=== PATIENT | male | born 1955 | race Caucasian/White ===

== ENCOUNTER → 2020-02-03 08:33 | Outpatient (BNVA) | payer BC, SELFPAY | PROVIDERS: PCP Internal Medicine; Referring Provider Internal Medicine; Visit Provider Internal Medicine | DX: Z76.89 Persons encountering health services in other specified circumstances (principal) ==

== ENCOUNTER 2020-03-21 16:33 | Outpatient (REF) | payer BC, SELFPAY | END 2020-03-21 16:34 | disposition home or self-care (01) | LOC: HO.LAB 16:33 | PROVIDERS: Visit Provider Dermatology | DX: Z13.89 Encounter for screening for other disorder (principal) ==

== ENCOUNTER 2020-04-03 16:11 | Outpatient (REF) | payer BC, SELFPAY ==
[2020-04-03 16:39] LABS: Eosinophils Absolute Auto 0.2 X10*3/uL (0.0-0.4); MANUAL DIFF FLAG SCAN; PLT CLUMP 1; Red Cell Distribution Width 13.1 % (11.0-16.0); SCAN SMEAR FLAG 1
[2020-04-03 16:41] LABS: Basophils Absolute Auto 0.1 X10*3/uL (0.0-0.2); Basophils Percent Auto 1.1 % (0-2); Eosinophils Percent Auto 2.8 % (0-4); Hemoglobin 14.4 g/dl (14.0-18.0); Imm Gran Abs Auto 0.01 X10*3/uL (0.00-0.03); Imm Gran Pct Auto 0.1 % (0.0-0.4); Lymphocytes Absolute Auto 1.5 X10*3/uL (1.2-4.9); Lymphocytes Percent Auto 21.2 % (20-40); Mean Corpuscular HGB Conc 34.3 g/dl (31.0-36.0); Mean Corpuscular Hemoglobin 31.9 pg (27.0-33.0); Mean Corpuscular Volume 92.9 fL (80-98); Mean Platelet Volume 11.5 fL (9.4-12.4); Monocytes Absolute Auto 0.5 X10*3/uL (0.1-1.2); Monocytes Percent Auto 6.3 % (2-11); Neutrophils Absolute Auto 4.9 X10*3/uL (2.0-8.3); Neutrophils Percent Auto 68.5 % (45-73); Red Blood Count 4.52 X10*6/uL (4.60-5.80); White Blood Count 7.1 X10*3/uL (4.8-10.8)
[2020-04-03 16:57] LABS: Platelet Count 94 X10*3/uL (160-400)
[2020-04-03 16:58] LABS: SLIDE REVIEW VERIFIED
[2020-04-03 17:03] LABS: Alanine Aminotransferase 14 U/L (0-40); Albumin Level 4.3 g/dL (3.5-5.0); Alkaline Phosphatase 103 U/L (39-117); Anion Gap 13 (12-20); Aspartate Amino Transferase 23 U/L (5-37); Bilirubin Total 0.4 mg/dL (0.0-1.0); Blood Urea Nitrogen 14 mg/dL (9-16); Calcium 8.9 mg/dL (8.4-10.2); Carbon Dioxide 28 mmol/L (22-29); Chloride 104 mmol/L (96-108); Estimated Glomerular Filt Rate > 60; Glucose Random 80 mg/dL (60-115); Sodium 141 mmol/L (135-145); Total Protein 6.5 g/dL (6.5-8.0)
== END 2020-04-03 16:12 | disposition home or self-care (01) ==
LOC: HO.LAB 16:11
PROVIDERS: PCP Internal Medicine; Visit Provider Dermatology
DX: L12.0 Bullous pemphigoid (principal); L57.0 Actinic keratosis; L82.1 Other seborrheic keratosis; Z79.899 Other long term (current) drug therapy
CPT/HCPCS: 36415; 80053; 85025

== ENCOUNTER 2020-09-22 12:12 | Outpatient (REF) | payer BC, SELFPAY ==
[2020-09-22 14:32] LABS: Basophils Absolute Auto 0.1 X10*3/uL (0.0-0.2); Imm Gran Abs Auto 0.01 X10*3/uL (0.00-0.03); Imm Gran Pct Auto 0.2 % (0.0-0.4); MANUAL DIFF FLAG SCAN; Mean Corpuscular Volume 95.2 fL (80-98); PLT CLUMP 1; SCAN SMEAR FLAG 1
[2020-09-22 14:34] LABS: Basophils Percent Auto 1.1 % (0-2); Eosinophils Absolute Auto 0.2 X10*3/uL (0.0-0.4); Eosinophils Percent Auto 4.1 % (0-4); Hematocrit 41.5 % (42-52); Lymphocytes Absolute Auto 1.3 X10*3/uL (1.2-4.9); Lymphocytes Percent Auto 23.3 % (20-40); Mean Corpuscular HGB Conc 33.7 g/dl (31.0-36.0); Mean Corpuscular Hemoglobin 32.1 pg (27.0-33.0); Mean Platelet Volume 11.8 fL (9.4-12.4); Monocytes Absolute Auto 0.5 X10*3/uL (0.1-1.2); Monocytes Percent Auto 9.3 % (2-11); Neutrophils Absolute Auto 3.3 X10*3/uL (2.0-8.3); Red Blood Count 4.36 X10*6/uL (4.60-5.80); Red Cell Distribution Width 12.8 % (11.0-16.0); White Blood Count 5.4 X10*3/uL (4.8-10.8)
[2020-09-22 14:35] LABS: Platelet Count 93 X10*3/uL (160-400)
[2020-09-22 14:48] LABS: Alanine Aminotransferase 20 U/L (0-40); Albumin Level 4.1 g/dL (3.5-5.0); Alkaline Phosphatase 101 U/L (39-117); Anion Gap 13 (12-20); Aspartate Amino Transferase 28 U/L (5-37); Bilirubin Total 0.6 mg/dL (0.0-1.0); Blood Urea Nitrogen 12 mg/dL (9-16); Calcium 9.2 mg/dL (8.4-10.2); Carbon Dioxide 29 mmol/L (22-29); Chloride 104 mmol/L (96-108); Estimated Glomerular Filt Rate > 60; Glucose Random 85 mg/dL (60-115); Potassium 4.4 mmol/L (3.3-5.1); Sodium 142 mmol/L (135-145); Total Protein 6.2 g/dL (6.5-8.0)
[2020-09-24 20:12] LABS: TS Negative Control Passed; TS Panel A 0; TS Panel B 0; TS Positive Control Passed; TSpotTB Negative (SeeBelow)
== END 2020-09-22 12:13 | disposition home or self-care (01) ==
LOC: HO.LAB 12:12
PROVIDERS: PCP Internal Medicine; Visit Provider Dermatology
DX: L12.0 Bullous pemphigoid (principal)
CPT/HCPCS: 36415; 80053; 85025; 86481

== ENCOUNTER 2021-01-01 16:12 | Outpatient (REF) | payer BC, SELFPAY ==
[2021-01-01 16:44] LABS: Basophils Absolute Auto 0.1 X10*3/uL (0.0-0.2); Hemoglobin 13.9 g/dl (14.0-18.0); Imm Gran Abs Auto 0.02 X10*3/uL (0.00-0.03); Imm Gran Pct Auto 0.3 % (0.0-0.4); MANUAL DIFF FLAG SCAN; PLT CLUMP 1; SCAN SMEAR FLAG 1
[2021-01-01 16:46] LABS: Basophils Percent Auto 0.7 % (0-2); Eosinophils Absolute Auto 0.3 X10*3/uL (0.0-0.4); Eosinophils Percent Auto 4.7 % (0-4); Hematocrit 39.6 % (42-52); Lymphocytes Absolute Auto 1.1 X10*3/uL (1.2-4.9); Lymphocytes Percent Auto 15.4 % (20-40); Mean Corpuscular HGB Conc 35.1 g/dl (31.0-36.0); Mean Corpuscular Hemoglobin 32.9 pg (27.0-33.0); Mean Corpuscular Volume 93.6 fL (80-98); Mean Platelet Volume 11.6 fL (9.4-12.4); Monocytes Absolute Auto 0.5 X10*3/uL (0.1-1.2); Monocytes Percent Auto 7.9 % (2-11); Neutrophils Absolute Auto 4.9 X10*3/uL (2.0-8.3); Red Blood Count 4.23 X10*6/uL (4.60-5.80); Red Cell Distribution Width 13.8 % (11.0-16.0); White Blood Count 6.8 X10*3/uL (4.8-10.8)
[2021-01-01 16:47] LABS: Platelet Count 97 X10*3/uL (160-400)
[2021-01-01 17:01] LABS: Alanine Aminotransferase 14 U/L (0-40); Albumin Level 4.1 g/dL (3.5-5.0); Alkaline Phosphatase 106 U/L (39-117); Anion Gap 10 (12-20); Aspartate Amino Transferase 21 U/L (5-37); Bilirubin Total 0.3 mg/dL (0.0-1.0); Blood Urea Nitrogen 14 mg/dL (9-16); Calcium 9.3 mg/dL (8.4-10.2); Carbon Dioxide 26 mmol/L (22-29); Chloride 109 mmol/L (96-108); Estimated Glomerular Filt Rate > 60; Glucose Random 105 mg/dL (60-115); Potassium 4.1 mmol/L (3.3-5.1); Sodium 141 mmol/L (135-145); Total Protein 6.3 g/dL (6.5-8.0)
[2021-01-01 17:10] LABS: SLIDE REVIEW VERIFIED
== END 2021-01-01 16:13 | disposition home or self-care (01) ==
LOC: HO.LAB 16:12
PROVIDERS: PCP Internal Medicine; Visit Provider Dermatology
DX: L12.0 Bullous pemphigoid (principal); D48.5 Neoplasm of uncertain behavior of skin; L82.1 Other seborrheic keratosis; Z79.899 Other long term (current) drug therapy; Z85.828 Personal history of other malignant neoplasm of skin
CPT/HCPCS: 36415; 80053; 85025

== ENCOUNTER → 2021-05-31 09:10 | Outpatient (BNVA) | payer BC, SELFPAY | PROVIDERS: PCP Internal Medicine; Referring Provider Internal Medicine; Visit Provider Internal Medicine | DX: I48.92 Unspecified atrial flutter (principal); I49.3 Ventricular premature depolarization; I51.7 Cardiomegaly; I77.810 Thoracic aortic ectasia; D69.6 Thrombocytopenia, unspecified | CPT/HCPCS: 93005 ==

== ENCOUNTER 2022-01-05 08:13 | Outpatient (REF) | payer BC, SELFPAY ==
[2022-01-05 08:35] LABS: MANUAL DIFF FLAG NO
[2022-01-05 08:58] LABS: Basophils Absolute Auto 0.1 X10*3/uL (0.0-0.2); Basophils Percent Auto 0.9 % (0-2); Eosinophils Absolute Auto 0.2 X10*3/uL (0.0-0.4); Eosinophils Percent Auto 3.6 % (0-4); Hematocrit 44.1 % (42.0-52.0); Hemoglobin 15.3 g/dl (14.0-18.0); Imm Gran Abs Auto 0.01 X10*3/uL (0.00-0.03); Imm Gran Pct Auto 0.2 % (0.0-0.4); Lymphocytes Absolute Auto 0.9 X10*3/uL (1.2-4.9); Lymphocytes Percent Auto 15.7 % (20-40); Mean Corpuscular HGB Conc 34.7 g/dl (31.0-36.0); Mean Corpuscular Hemoglobin 32.6 pg (27.0-33.0); Mean Corpuscular Volume 93.8 fL (80.0-98.0); Mean Platelet Volume 11.2 fL (9.4-12.4); Monocytes Absolute Auto 0.5 X10*3/uL (0.1-1.2); Monocytes Percent Auto 9.7 % (2-11); Neutrophils Absolute Auto 3.8 x10*3/uL (2.0-8.3); Neutrophils Percent Auto 69.9 % (45-73); Platelet Count 103 X10*3/uL (160-400); Red Cell Distribution Width 12.8 % (11.0-16.0); White Blood Count 5.5 X10*3/uL (4.8-10.8)
[2022-01-05 09:30] LABS: Alanine Aminotransferase 20 U/L (0-40); Albumin Level 4.2 g/dL (3.5-5.0); Alkaline Phosphatase 108 U/L (39-117); Anion Gap 15 (12-20); Aspartate Amino Transferase 21 U/L (5-37); Bilirubin Total 0.5 mg/dL (0.0-1.0); Blood Urea Nitrogen 14 mg/dL (9-16); Calcium 9.2 mg/dL (8.4-10.2); Carbon Dioxide 30 mmol/L (22-29); Chloride 100 mmol/L (96-108); Cholesterol 153 mg/dL; Estimated Glomerular Filt Rate > 60; Glucose Fasting 105 mg/dL (60-99); HDL Cholesterol 71 mg/dL; LDL Cholesterol Calculated 78 mg/dl; Potassium 4.5 mmol/L (3.3-5.1); Sodium 140 mmol/L (135-145); Total Protein 6.5 g/dL (6.5-8.0); Triglycerides 22 mg/dL
[2022-01-05 09:39] LABS: PSA,Total (Free>4and<10) 0.27 ng/mL (0.00-4.00)
== END 2022-01-05 08:14 | disposition home or self-care (01) ==
LOC: HO.LAB 08:13
PROVIDERS: PCP Internal Medicine; Visit Provider Internal Medicine
DX: Z00.00 Encounter for general adult medical examination without abnormal findings (principal); Z12.5 Encounter for screening for malignant neoplasm of prostate; I48.91 Unspecified atrial fibrillation
CPT/HCPCS: 36415; 80053; 80061; 84153; 85025

== ENCOUNTER → 2022-05-23 09:14 | Outpatient (REF) | payer BC, SELFPAY ==
--- NOTE | 2022-05-23 09:17 | CA_ITS ---
Transthoracic Echocardiogram Patient (Last, First, Middle): Abdiaziz Stern F Gender: Male Date of : 1955 Age: 67 Procedure Date: 05/23/2022 Procedure Type: Transthoracic Echocardiogram Location: OP Height: 177.8 cm Weight: 63.5 kg BSA: 1.79 m2 Heart Rate: bpm BP: 130 / 70 mmHg Dispatch Specialist: TO Referring MD: Delroy Goyal MD Automation Control Integrator: Jacob Ibarra MD Symptoms: I48.92 - Unspecified atrial flutter Study Quality: Technically Difficult/contrast ECG Rhythm: Sinus Conclusions: - 1. Normal LV systolic function with grade 1 diastolic dysfunction 2. Mildly dilated left atrium 3. Trivial aortic regurgitation 4. Normal RV systolic pressure 5. Mildly dilated ascending aorta at 4.3 cm 6. No pericardial effusion Findings Procedure Information Contrast agent, definity, is being given per protocol without apparent complications. The study quality is limited by patients body habitus. Left Ventricle Normal left ventricular size, thickness, and systolic function. The visually estimated ejection fraction is between 55-60%. Spectral Doppler is indicative of an impaired relaxation filling pattern. E/E prime ratio is <8, consistent with normal filling pressures. Evidence suggests grade I (mild) diastolic dysfunction. Right Ventricle The right ventricle was not well visualized. Atria The left atrium is mildly dilated. Interatrial shunt cannot be excluded. The right atrium was not well visualized. Aortic Valve There is mild calcification of the aortic valve. There is no aortic valve stenosis. There is trace (trivial) aortic valve regurgitation. Mitral Valve There is mild anterior and posterior mitral leaflet thickening. There is mild mitral annular calcification. There is trace mitral valve regurgitation. There is no mitral valve stenosis. Pulmonic Valve The pulmonic valve was not well visualized. Tricuspid Valve Likely normal tricuspid valve structure and function. There is trace tricuspid valve regurgitation. The right ventricular systolic pressure is normal. The right ventricular systolic pressure is 30 mmHg. Normal right atrial pressure. There is no evidence of pulmonary hypertension. Great Vessels The pulmonary artery was not well visualized. There is mild dilatation of the ascending aorta measuring 4.30 cm. Venous The inferior vena cava is normal in size and collapses greater than 50% with inspiration. Pericardium/Pleural There is no evidence of pericardial effusion. Measurements 2D Linear Measurements IVSd: 0.96 0.6-0.9/0.6-1.0 cm LVIDd: 4.93 3.9-5.3/4.2-5.9 cm LVIDd Index: 2.75 2.4-3.2/2.2-3.1 cm/m2 LVIDs: 3.55 2.0-3.6 cm LVPWd: 0.84 0.7-1.1 cm LA Diam: 3.20 2.7-3.8/3.0-4.0 cm LAIDs Index: 1.79 1.5-2.3 cm/m2 LV Mass: 192.26 67-162/88-224 g LV Mass Index: 107.41 43-95/49-115 g/m2 LVOT Diam: 2.20 3.0+(-)1.3 cm 2D Systolic Function EF 4C: 57.30 >55% EF 2C: 59.50 >55% EF BiP: 57.00 >55% Mitral Valve MV Pk E: 0.55 MV PK A: 0.68 MV Decel Time: 289.00 E/A: 0.80 E'Lateral: 7.18 E'Medial: 6.42 E/E' Med: 8.50 E/E' Lat: 7.60 PHT: 85.00 MVA PHT: 2.59 Decel Trigg: 1.90 Aortic Valve AoV Pk Primo: 1.12 AoV Mn Primo: 0.77 AoV VTI: 0.24 AoV Pk Grad: 5.00 Aov Mn Grad: 3.00 ALICIA Cont.VTI: 2.08 LVOT LVOT Pk Primo: 0.75 LVOT Mn Primo: 0.44 LVOT VTI: 0.13 LVOT Pk Grad: 2.00 LVOT Mn Grad: 1.00 LVOT Diam: 2.20 LVOT Area: 3.80 Diastolic Function MV Pk E: 0.55 MV Pk A: 0.68 E/A: 0.80 E'Medial: 6.42 E/E' Med: 8.50 E' Laterial: 7.18 E/E' Lat: 7.60 Right Ventricle TAPSE (mm): 16.50 TVS' Primo: 11.90 Tricuspid Valve TR Pk Primo: 2.62 TR Pk Grad: 27.00 RA Press: 3.00 RVSP: 30.00 Great Vessels Aorta Sinus of Valsalva: 4.04 2.0-3.5 cm Ao Asc: 4.30 2.1-3.4 cm Updated in Other Vendor System with Status of Final Jacob Ibarra MD electronically signed on 05/23/2022 12:05:09 PM with status of Final
== END ==
LOC: HO.CARD 09:14
PROVIDERS: Visit Provider Internal Medicine
DX: I48.92 Unspecified atrial flutter (principal)
CPT/HCPCS: 93306; Q9957

== ENCOUNTER → 2022-05-30 09:11 | Outpatient (BNVA) | payer BC, SELFPAY | PROVIDERS: PCP Internal Medicine; Referring Provider Internal Medicine; Visit Provider Internal Medicine | DX: I48.92 Unspecified atrial flutter (principal); I51.7 Cardiomegaly; I77.810 Thoracic aortic ectasia; R03.0 Elevated blood-pressure reading, without diagnosis of hypertension | CPT/HCPCS: 93005 ==

== ENCOUNTER 2022-07-25 15:58 | Outpatient (REF) | payer BC, SELFPAY ==
[2022-07-25 17:24] LABS: Hemoglobin 14.2 g/dl (14.0-18.0); PLT CLUMP 1; Red Blood Count 4.58 X10*6/uL (4.60-5.80); SCAN SMEAR FLAG 1
[2022-07-25 17:26] LABS: Basophils Absolute Auto 0.1 X10*3/uL (0.0-0.2); Basophils Percent Auto 0.9 % (0-2); Eosinophils Absolute Auto 0.2 X10*3/uL (0.0-0.4); Eosinophils Percent Auto 3.5 % (0-4); Hematocrit 40.9 % (42.0-52.0); Imm Gran Abs Auto 0.01 X10*3/uL (0.00-0.03); Imm Gran Pct Auto 0.2 % (0.0-0.4); Lymphocytes Absolute Auto 1.3 X10*3/uL (1.2-4.9); Lymphocytes Percent Auto 20.3 % (20-40); Mean Corpuscular HGB Conc 34.7 g/dl (31.0-36.0); Mean Corpuscular Volume 89.3 fL (80.0-98.0); Mean Platelet Volume 11.5 fL (9.4-12.4); Monocytes Absolute Auto 0.6 X10*3/uL (0.1-1.2); Monocytes Percent Auto 9.6 % (2-11); Neutrophils Absolute Auto 4.3 x10*3/uL (2.0-8.3); Neutrophils Percent Auto 65.5 % (45-73); Red Cell Distribution Width 13.1 % (11.0-16.0)
[2022-07-25 17:39] LABS: MANUAL DIFF FLAG NO; Platelet Count 113 X10*3/uL (160-400); White Blood Count 6.5 X10*3/uL (4.8-10.8)
[2022-07-25 17:53] LABS: C Reactive Protein 0.11 mg/dL (< or = 0.50)
[2022-07-25 19:19] LABS: Erythrocyte Sedimentation Rate 3 MM/HR (0-15)
== END 2022-07-25 15:59 | disposition home or self-care (01) ==
LOC: HO.LAB 15:58
PROVIDERS: PCP Internal Medicine; Visit Provider Ophthalmology
DX: H47.012 Ischemic optic neuropathy, left eye (principal)
CPT/HCPCS: 36415; 85025; 85652; 86140

== ENCOUNTER 2022-08-16 14:58 | Outpatient (REF) | payer BC, SELFPAY ==
--- NOTE | ~2022-08-16 | US_ITS ---
EXAMINATION: US EXTRACRANIAL CAROTID DUPLEX, BILATERAL CLINICAL INFORMATION: Carotid stenosis. COMPARISON: None available. TECHNIQUE: Real-time ultrasound and Doppler techniques (integrating B-mode 2-D vascular images, Doppler spectral analysis and color-flow Doppler imaging) were utilized to interrogate the extracranial carotid arteries, the vertebral arteries and proximal subclavian arteries bilaterally. The degree of stenosis is determined by criteria similar to NASCET. FINDINGS: Right Side: 1. There is no atherosclerotic plaque seen in the bifurcation/proximal ICA region. 2. The common carotid artery PSV proximally is 86 cm/s and distally 134 cm/s. 3. The proximal internal carotid artery velocities are 58 cm/s systolic and 20 cm/s diastolic. 4. The proximal external carotid artery PSV is 132 cm/s. 5. The vertebral artery shows antegrade flow. 6. The subclavian artery waveforms are normal. Left Side: 1. There is mild atherosclerotic plaque seen in the bifurcation/proximal ICA region. 2. The common carotid artery PSV proximally is 113 cm/s and distally 94 cm/s. 3. The proximal internal carotid artery velocities are 47 cm/s systolic and 15 cm/s diastolic. 4. The proximal external carotid artery PSV is 118 cm/s. 5. The vertebral artery shows antegrade flow. 6. The subclavian artery waveforms are normal. Irregular rhythm is seen. US/US carotid duplex BI IMPRESSION: 1. RIGHT: Normal right internal carotid artery without atherosclerotic plaque or hemodynamically significant stenosis. 2. LEFT: Minimal, non-hemodynamically significant stenosis of the proximal left internal carotid artery corresponding to a 0-49% stenosis by velocity criteria. 3. Irregular rhythm is seen.
== END 2022-08-16 14:59 | disposition home or self-care (01) ==
LOC: HO.US 14:58
PROVIDERS: PCP Internal Medicine; Visit Provider Internal Medicine
DX: I65.23 Occlusion and stenosis of bilateral carotid arteries (principal)
CPT/HCPCS: 93880

== ENCOUNTER → 2022-08-26 13:10 | Outpatient (REF) | payer BC, SELFPAY ==
--- NOTE | 2022-08-26 13:13 | HM_ITS ---
* Total monitoring time 3 days. * Underlying rhythm is sinus. Average ventricular rate 71/Min. Range 51 to 115/Min. * Occasional supraventricular ectopy. Low burden. Very brief runs noted. * Frequent ventricular ectopy. Heth of 2%. 4 runs noted. Longest run 3 beats. * No significant pauses or AV blocks. * One patient marker, in association with sinus rhythm and PVCs. No diary entries. MTDD
== END ==
LOC: HO.CARD 13:10
PROVIDERS: PCP Internal Medicine; Visit Provider Internal Medicine
DX: I48.91 Unspecified atrial fibrillation (principal)
CPT/HCPCS: 93242

== ENCOUNTER 2022-09-19 13:31 | Outpatient (REF) | payer BC, SELFPAY ==
--- NOTE | ~2022-09-19 | MR_ITS ---
EXAMINATION: MR BRAIN WITHOUT CONTRAST CLINICAL INFORMATION: Seizure disorder, left eye decreased vision COMPARISON: MRI brain 08/25/2014 TECHNIQUE: MRI of the brain was obtained using routine sequences without contrast. FINDINGS: Mildly motion degraded examination. The bilateral hippocampi are symmetric in size, signal, and morphology without evidence of mesial temporal sclerosis. No definite structural epileptogenic lesion identified within limitations of a noncontrast 1.5 Maria L examination. No acute infarct. No acute intracranial hemorrhage or extra-axial fluid collection. Slightly progressed mild to moderate generalized parenchymal volume loss. Patchy T2 FLAIR hyperintense foci throughout the subcortical and periventricular white matter likewise slightly progressed since prior examination. Redemonstrated symmetric signal abnormality involving the superior cerebellar peduncles and dorsal midbrain. Clustered chronic lacunar infarcts within the right deep parietal/periventricular white matter again seen. No mass lesion, mass effect, or herniation pattern. Normal intracranial arterial and dural venous sinus flow voids. Normal appearance of the midline structures. The orbits are grossly unremarkable. Increased mild to moderate pansinus mucosal disease with retention cysts/polyps in the maxillary sinuses. No mastoid effusion. Arachnoid granulation along the left paramedian occipital calvarium has slightly increased in size since 08/25/2014, now measuring 7 mm. Discogenic disease and disc osteophyte complex at C3-C4 with facet arthropathy and ligamentum flavum thickening contribute to at least moderate spinal canal stenosis with possible mass effect on the cord, which can be correlated clinically for referrable myelopathy and further evaluated with cervical spine MRI as warranted. MR/MR head/brain wo con IMPRESSION: 1. Slightly progressed mild to moderate generalized parenchymal volume loss and nonspecific supratentorial white matter disease. Redemonstrated symmetric signal abnormality within the dorsal midbrain and bilateral superior cerebellar peduncles. Clustered chronic lacunar infarcts within the right deep parietal/periventricular white matter again seen. 2. Multifactorial degenerative change at C3-C4 contributing to apparent at least moderate spinal canal stenosis with possible mass effect along the cervical cord which can be correlated clinically for signs of referrable myelopathy and further evaluated with cervical spine MRI as warranted. 3. Increased mild to moderate pansinus mucosal disease with retention cysts/polyps in the maxillary sinuses.
== END 2022-09-19 13:32 | disposition home or self-care (01) ==
LOC: HO.MRI 13:31
PROVIDERS: PCP Internal Medicine; Visit Provider Psychiatry & Neurology Neurology
DX: G40.209 Localization-related (focal) (partial) symptomatic epilepsy and epileptic syndromes with complex partial seizures, not intractable, without status epilepticus (principal)
CPT/HCPCS: 70551

== ENCOUNTER 2022-10-04 09:58 | Day surgery (SDC) | payer BC, SELFPAY ==
[2022-10-01 14:32] VITALS: BMI 22.1
--- NOTE | 2022-10-02 14:49 | P.CONAN_ITS ---
Documented by User: Shiloh Correia NP 10/02/22 14:51 HPI - Anesthesia Eval Consult details Narrative: 67yo M for Colonoscopy Xarelto for aflutter. Follows [facility] [place] cardiology. Stable at 05/2022 office visit. [facility] Active Problems Active Problems: All Active Problems (Updated 10/01/22 @ 14:31 by Nay Villasenor RN) Afib (Acute) Paroxysmal atrial flutter (Acute) Right ventricular dilation (Acute) Ascending aorta dilatation (Acute) Seizure (Acute) Annual physical exam (Acute) Bullous pemphigoid (Acute) Skin cancer (Acute) Encounter for screening colonoscopy (Acute) Elevated BP without diagnosis of hypertension (Acute) PVC (premature ventricular contraction) (Acute) Esophageal abnormality (Acute) Thrombocytopenia (Acute) Atrial flutter by electrocardiogram (Acute) Past Medical History Medical History Atrial flutter by electrocardiogram Esophageal abnormality PVC (premature ventricular contraction) Thrombocytopenia Family History Family History Father No problems noted. Mother No problems noted. Surgical History Surgical History History of esophagogastroduodenoscopy (EGD) History of shoulder surgery (~06/15/14) Hx of colonoscopy Social History Social History Housing: House Alcohol intake: never Patient Tobacco Use Status: Former Tobacco user Use of substances other than those prescribed or required for medical reasons: No Are you DNR?: No Advance Directives: No Advance Directives Information Provided: Yes Current occupational status: employed Cognitive needs: No Hearing needs: No Vision needs: Yes Meds Allergies Allergy/AdvReac Type Severity Reaction Status Date / Time valproic acid AdvReac Intermediate Hyponatremi Verified 10/01/22 14:22 a Home Medications Medication Instructions Recorded Confirmed Last Taken Type levetiracetam 750 mg tablet 750 mg PO DAILY 02/03/20 10/01/22 10/04/22 History Exam Exam Date and Time: October 02, 2022 1449 Height,Weight and Vital Signs: Height 5 ft 9 in Weight 68.039 kg Pertinent Lab Results Pertinent Lab Results: Laboratory Tests 01/05/22 07/25/22 08:34 16:12 WBC 6.5 Hgb 14.2 Hct 40.9 L Plt Count 113 L Sodium 140 Potassium 4.5 Chloride 100 Carbon Dioxide 30 H BUN 14 Creatinine 0.75 Narrative Narrative: EKG 05/2022 sinus bradycardia, 58/Min; no significant ST-T changes; normal NM and corrected QT. ECHO 05/2022 Conclusions: - 1. Normal LV systolic function with grade 1 diastolic? dysfunction? 2. Mildly dilated left atrium? 3. Trivial aortic regurgitation? 4. Normal RV systolic pressure ? 5. Mildly dilated ascending aorta at 4.3 cm? 6. No pericardial effusion ? Assessment and Plan Assessment Anesthesia Assessment: Chart Reviewed Documented by User: Zoila Otero MD 10/04/22 11:53 PMFSH Past Medical History Medical History Atrial flutter by electrocardiogram Esophageal abnormality PVC (premature ventricular contraction) Thrombocytopenia Family History Family History Father No problems noted. Mother No problems noted. Family history of problems with anesthesia: No Surgical History Surgical History History of esophagogastroduodenoscopy (EGD) History of shoulder surgery (~06/15/14) Hx of colonoscopy History of Problems with Anesthesia: No Social History Social History Housing: House Alcohol intake: never Patient Tobacco Use Status: Former Tobacco user Use of substances other than those prescribed or required for medical reasons: No Are you DNR?: No Advance Directives: No Advance Directives Information Provided: Yes Current occupational status: employed Cognitive needs: No Hearing needs: No Vision needs: Yes Meds Allergies Allergy/AdvReac Type Severity Reaction Status Date / Time valproic acid AdvReac Intermediate Hyponatremi Verified 10/01/22 14:22 a Home Medications Medication Instructions Recorded Confirmed Last Taken Type levetiracetam 750 mg tablet 750 mg PO DAILY 02/03/20 10/01/22 10/04/22 History Exam Airway Mallampati Class: II TM Dist: <=3cm Neck ROM: Full Heart: rrr Lungs: cta Assessment and Plan Assessment Anesthesia Assessment: Anesthesia Plan Discussed Final Anesthetic Review Family History of Problems with Anesthesia: No History of Problems with Anesthesia: No NPO: Yes ASA Class: III Final Preanesthetic Review: No Changes in Pt Med Stat, Meds/Allgs Chart Reviewed, Consent Obtained/Reviewed and Anes Risks/Benef Reviewed Patient Risk: Low Procedure Risk: Low Anesthetic Plan Anesthetic Plan: MAC: Disposition: Standard PACU
[2022-10-04 10:12] VITALS: BMI 21.4
--- NOTE | 2022-10-04 10:26 | MHC.SHP ---
Pre-Procedural Eval Section A Date of Service: 10/04/22 The patient is an INPATIENT: No The History & Physical has been completed within 30 days and I have reviewed it.: No Section B Chief Complaint: Colon cancer screening Relevant Family History (Specify if Yes): No Relevant Social History: Tobacco Use (Former smoker) Present Medications: see Short Stay Collaborative assessment Medical History: Significant History (Atrial flutter by electrocardiogram Esophageal abnormality PVC (premature ventricular contraction) Thrombocytopenia) History of Previous Operations: Relevant previous surgery/procedure and date(s) (History of shoulder surgery (~06/15/14) Hx of colonoscopy) Allergies: Allergies Allergy/AdvReac Type Severity Reaction Status Date / Time valproic acid AdvReac Intermediate Hyponatremi Verified 10/01/22 14:22 a Review of Systems Sugical H&P ROS: Negative: Constitution, Cardiovascular, Respiratory and Gastrointestinal Exam Surgical H&P Exam: Normal: Heart, Normal: Lungs, Normal: Extremities and Normal: Abdomen Plan Diagnosis/Plan: Unchanged I have reviewed the history and physical and performed a pertinent physical examination on my patient. No changes have occurred unless specified. Time Spent With Patient Time: Total time managing care of this patient today ____ minutes.
[2022-10-04 10:28] VITALS: BP 128/70; PULSE 63; RESP 16; TEMP 36.6; O2SAT 95
[2022-10-04] MEDS: Lactated Ringers 1,000 ML 100 ML IVCONT (10:43)
--- NOTE | 2022-10-04 12:17 | W.PM.OPN ---
Operative Note Operative Note Date of Service: 10/04/22 Narrative: COLONOSCOPY TILL CECUM WITH BIOPSIES Pre-op diagnosis: Colon cancer screening Post-op diagnosis:? Diverticulosis, hemorrhoids Endoscopist:? Karen Samuel MD Anesthesia:?MAC Consent: Indications for the procedure and potential complications of bleeding, perforation, reaction to medications and missed diagnosis were discussed with the patient and informed consent was obtained. Instrument: Olympus PCF H 190 L variable stiffness pediatric colonoscope Monitoring: Vital signs and clinical assessment, intermittent blood pressure monitoring, continuous EKG monitoring, Pulse oximetry and Carbon Dioxide monitoring were done throughout the procedure. Please see anesthesia flowsheet. Colon withdrawl time was 16 minutes. Procedure: The patient was placed in the left lateral decubitis position and pre-procedure medications were administered. After a digital rectal examination of the ano-rectum, the video colonoscope was inserted into the rectum and advanced through the colon to the cecum. The colonoscope was slowly withdrawn in a retrograde panoramic fashion and the colon mucosa was carefully examined including a retroflexed view of the rectum. Findings and interventions are described below. Procedure Difficulty: Colon was long and redundant and there was recurrent loop formation Findings: Terminal Ileum: Not evaluated Cecum: Normal Ascending Colon: Normal Transverse Colon: Normal Descending Colon: Normal Sigmoid Colon: Moderate diverticulosis Rectum: Patchy erythema in the distal rectum - biopsies obtained. Ano-rectum: Moderate internal hemorrhoids Colon preparation: Good some irrigation. Impression and Post Procedure Diagnosis: Colonoscopy Findings: No polyps were detected Moderate diverticulosis seen in the sigmoid colon Moderate hemorrhoids on retroflexed exam. Plan: I will send a letter with pathology results Repeat Colonoscopy in 10 years if rectal biopsies are normal (adult colonoscope for future colonoscopies). Above findings were reviewed with the patient and diverticulosis handout was given in the discharge area
[2022-10-04 12:18] VITALS: BP 107/66; PULSE 66; RESP 16; TEMP 36.5; O2SAT 100
[2022-10-04 12:33] VITALS: BP 123/75; PULSE 60; RESP 16; TEMP 36.7; O2SAT 98
== END 2022-10-04 13:12 | disposition home or self-care (01) ==
PROVIDERS: PCP Internal Medicine; Visit Provider Internal Medicine Gastroenterology
PROC: 0DJD8ZZ Inspection of Lower Intestinal Tract, Via Natural or Artificial Opening Endoscopic (ICD-10-PCS; CPT 45378; principal; 2022-10-04 11:20)
DX: Z12.11 Encounter for screening for malignant neoplasm of colon (principal); K57.30 Diverticulosis of large intestine without perforation or abscess without bleeding; K64.8 Other hemorrhoids; I48.92 Unspecified atrial flutter; I48.91 Unspecified atrial fibrillation; I49.3 Ventricular premature depolarization; D69.6 Thrombocytopenia, unspecified; Z79.01 Long term (current) use of anticoagulants; Z79.899 Other long term (current) drug therapy; Z88.8 Allergy status to other drugs, medicaments and biological substances; Z87.891 Personal history of nicotine dependence
CPT/HCPCS: 45380; 88305; J2250; J2370

== ENCOUNTER 2023-01-03 12:37 | Outpatient (AMB) | payer BC, SELFPAY ==
[2023-01-03 12:40] VITALS: BP 112/68; PULSE 60; O2SAT 95; BMI 21.9
--- NOTE | 2023-01-03 12:40 | MHC.PC.OV ---
Vital Signs 01/03/23 12:40 Height 5 ft 9 in Weight 148 lb BMI 21.9 BP 112/68 Blood Pressure Location Lt brachial Position Sitting Pulse 60 Pulse Source Pulse Oximeter Pulse Oximetry (%) 95 Oxygen Delivery Method Room Air Intake Visit Reasons: Annual PE Intake Note: Pt is here today for PE. Allergies valproic acid Adverse Reaction (Intermediate, Verified 01/03/23 12:41) Hyponatremia Medication List - Last Reconciled 01/03/23 by Mily Begum MD diltiazem HCl ER (DILT-XR) 180 mg PO DAILY 90 days levetiracetam 750 mg PO DAILY rivaroxaban (Xarelto) 20 mg PO DAILY 90 days Tobacco use date assessed: 01/03/23 Fall risk assessment: No Falls in past year Last assessed Fall Risk: 01/03/23 Dental Screening Dental Screen Date: 01/03/23 Did you have a dental visit in the last 12 months?: No Did you have a dental problem in the last 6 months where you did not have access to dental care?: No Was dental information given to patient?: Patient declined HPI Annual PE HPI Details Pt presents for PE. Patient had temporary vision loss in the right eye and brain MRI showed lacunar infarct in the right parietal white matter. [facility] [place] Medical History PVC (premature ventricular contraction) Esophageal abnormality Thrombocytopenia Atrial flutter by electrocardiogram Surgical History History of esophagogastroduodenoscopy (EGD) Hx of colonoscopy History of shoulder surgery (~06/15/14) Family History Father No problems noted. Mother No problems noted. Social History Housing: House Alcohol intake: never Patient Tobacco Use Status: Former Tobacco user Current occupational status: employed Cognitive needs: No Hearing needs: No Vision needs: Yes Questionnaire PHQ-9 Over the last 2 weeks, how often have you been bothered by any of the following problems? 1. Little interest or pleasure in doing things: not at all 2. Feeling down, depressed, or hopeless: not at all 3. Trouble falling or staying asleep, or sleeping too much: not at all 4. Feeling tired or having little energy: several days 5. Poor appetite or overeating: not at all 6. Feeling bad about yourself - or that you are a failure or have let yourself or your family down: not at all 7. Trouble concentrating on things, such as reading the newspaper or watching television: not at all 8. Moving or speaking so slowly that other people could have noticed. Or the opposite - being so fidgety or restless that you have been moving around a lot more than usual: not at all 9. Thoughts that you would be better off or of hurting yourself in some way: not at all Total score: 1 Depression Screening Interpretation: Negative Source: Developed by Drs. Abe Garza, Layne Dee, lSy Alvarado and colleagues, with an educational tianna from [employer]. Thrive Questionnaire Date Thrive assessed: 01/03/23 I am a: Patient What is your living situation today?: I have a steady place to live Within the past 12 months, did the food you bought not last and you didn't have the money to get more?: Never true Within the past 12 months, did you worry whether your food would run out before you got money to buy more?: Never true Do you have trouble paying for medicines?: No Do you have trouble getting transportation to medical appointments?: No Do you have trouble paying your heating and electricity bill?: No Do you have trouble taking care of your child, family member or friend?: No Do you have trouble with day-to-day activities such as bathing, preparing meals, shopping, managing finances, etc.?: No Are you currently unemployed and looking for a job?: No Are you interested in more education?: No Please select the resources that you would like help with: None Currently or been in a relationship where the following occur: no concerns reported AUDIT C Alcohol Use Questionnaire (AUDIT-C) 1. How often do you have a drink containing alcohol?: Never 3. How often do you have six or more drinks on one occasion?: Never Total Score: 0 VIPIN-7 AMB Questionnaire VIPIN-7 Date VIPIN - 7 assessed: 01/03/23 Feeling nervous, anxious, or on edge: 0 = Not at all Not being able to stop or control worryin = Not at all Worrying too much about different things: 0 = Not at all Trouble relaxin = Not at all Being so restless that it is hard to sit still: 0 = Not at all Becoming easily annoyed or irritable: 0 = Not at all Feeling afraid as if something awful might happen: 0 = Not at all Total VIPIN-7 score (0-4 normal; 5-9 mild; 10-14 moderate; 15-21 severe): 0 Source: Developed by Drs. Abe Garza, Layne Dee, Sly Alvarado and colleagues, with an educational tianna from [employer]. Review of Systems Const All systems reviewed & are unremarkable except as noted in HPI and below Reports no additional complaints Eyes Reports no additional complaints ENT Reports no additional complaints Card Reports no additional complaints Resp Reports no additional complaints GI Reports no additional complaints Reports no additional complaints Musc Reports no additional complaints Physical exam (Primary Care) Vital Signs: Last Vital Signs Pulse 60 01/03/23 12:40 BP 112/68 01/03/23 12:40 Pulse Ox 95 01/03/23 12:40 Oxygen Delivery Method Room Air 01/03/23 12:40 BMI result Body Mass Index 21.9 Tobacco/Smoking Status: Tobacco use Status Tobacco use date assessed 01/03/23 01/03/23 12:45 Patient Tobacco Use Status Former Tobacco user 01/03/23 12:45 PHQ-9: PHQ-9 Score PHQ-9: Total score 1 01/03/23 13:05 Depression Screening Interpretation: Negative Thrive Assessment: Date of Thrive Assessment Date Thrive assessed 01/03/23 01/03/23 12:45 Currently or been in a relationship where the following occur: no concerns reported Const General: no acute distress HENMT Head: Yes normal to inspection Ears: hearing grossly normal bilaterally General nose exam: Normal external nose present Face and sinus: Yes normal facial exam Mouth: Normal oral and palatal mucosa present Throat: Yes posterior oropharynx normal Eyes General: appearance normal, both eyes and all related structures Neck Neck: Yes no lymphadenopathy and Yes supple Resp Effort & Inspection: normal respiratory effort Auscultation: clear to auscultation bilaterally Cardio Rhythm: regular rhythm Heart sounds: S1 normal heart sound present and S2 normal heart sound present GI Inspection: Yes normal to inspection Palpation (GI): Soft to palpation Percussion: Yes normal to percussion Auscultation: normal bowel sounds Assessment and Plan Assessment & Plan (1) Seizure: Comment: no seizure activity in 10 years, f/u with neurology Code(s): R56.9 - Unspecified convulsions (2) Afib: Comment: xarelto-DC 2 days prior to procedure in anticipation of polypectomy/biopsy must be authorized by prescriber Code(s): I48.91 - Unspecified atrial fibrillation Plan: cont meds (3) Annual physical exam: Code(s): Z00.00 - Encounter for general adult medical examination without abnormal findings Plan: Well-balanced diet and regular physical activity discussed with patient (4) CVA (cerebral vascular accident): Comment: MRI brain R parietal lacular infarcts Code(s): I63.9 - Cerebral infarction, unspecified Plan: Start 20 mg of atorvastatin return in 1 month for lipid profile Orders: Orders Complete Blood Count Auto Diff 365 Days I63.9 - Cerebral infarction, unspecified, Z00.00 - Encounter for general adult medical examination without abnormal findings Comprehensive Lyndon. Panel Fast 1 Month I48.91 - Unspecified atrial fibrillation, I63.9 - Cerebral infarction, unspecified, R56.9 - Unspecified convulsions, Z00.00 - Encounter for general adult medical examination without abnormal findings Complete Blood Count Auto Diff 1 Month I48.91 - Unspecified atrial fibrillation, I63.9 - Cerebral infarction, unspecified, R56.9 - Unspecified convulsions, Z00.00 - Encounter for general adult medical examination without abnormal findings Lipid Panel 1 Month I48.91 - Unspecified atrial fibrillation, I63.9 - Cerebral infarction, unspecified, R56.9 - Unspecified convulsions, Z00.00 - Encounter for general adult medical examination without abnormal findings PSA,Total (Free>4and<10) 1 Month I48.91 - Unspecified atrial fibrillation, I63.9 - Cerebral infarction, unspecified, R56.9 - Unspecified convulsions, Z00.00 - Encounter for general adult medical examination without abnormal findings Comprehensive Lyndon. Panel Fast 365 Days I63.9 - Cerebral infarction, unspecified, Z00.00 - Encounter for general adult medical examination without abnormal findings Lipid Panel 365 Days I63.9 - Cerebral infarction, unspecified, Z00.00 - Encounter for general adult medical examination without abnormal findings PSA,Total (Free>4and<10) 365 Days I63.9 - Cerebral infarction, unspecified, Z00.00 - Encounter for general adult medical examination without abnormal findings Medications: New atorvastatin 20 mg PO DAILY 90 tabs 3RF Coding Level of Care Code Est Pt Prev Care >65y(49739) Diagnoses Seizure R56.9 Afib I48.91 Annual physical exam Z00.00 CVA (cerebral vascular accident) I63.9
== END 2023-01-03 14:13 | disposition home or self-care (01) ==
PROVIDERS: Visit Provider Internal Medicine
DX: R56.9 Unspecified convulsions (principal); I48.91 Unspecified atrial fibrillation; Z00.00 Encounter for general adult medical examination without abnormal findings; I63.9 Cerebral infarction, unspecified
CPT/HCPCS: 99397

== ENCOUNTER 2023-04-12 08:46 | Outpatient (REF) | payer BC, SELFPAY ==
[2023-04-12 11:14] LABS: MANUAL DIFF FLAG NO
[2023-04-12 11:19] LABS: Basophils Absolute Auto 0.1 X10*3/uL (0.0-0.2); Basophils Percent Auto 1.1 % (0-2); Eosinophils Absolute Auto 0.2 X10*3/uL (0.0-0.4); Eosinophils Percent Auto 3.5 % (0-4); Hematocrit 46.7 % (42.0-52.0); Hemoglobin 15.7 g/dl (14.0-18.0); Imm Gran Abs Auto 0.02 X10*3/uL (0.00-0.03); Imm Gran Pct Auto 0.3 % (0.0-0.4); Lymphocytes Percent Auto 15.8 % (20-40); Mean Corpuscular HGB Conc 33.6 g/dl (31.0-36.0); Mean Corpuscular Hemoglobin 31.2 pg (27.0-33.0); Mean Corpuscular Volume 92.8 fL (80.0-98.0); Monocytes Absolute Auto 0.7 X10*3/uL (0.1-1.2); Monocytes Percent Auto 9.9 % (2-11); Neutrophils Absolute Auto 4.6 x10*3/uL (2.0-8.3); Neutrophils Percent Auto 69.4 % (45-73); Platelet Count 110 X10*3/uL (160-400); Red Blood Count 5.03 X10*6/uL (4.60-5.80); Red Cell Distribution Width 13.2 % (11.0-16.0); White Blood Count 6.6 X10*3/uL (4.8-10.8)
[2023-04-12 11:37] LABS: Alanine Aminotransferase 15 U/L (0-40); Albumin Level 4.3 g/dL (3.5-5.0); Alkaline Phosphatase 118 U/L (39-117); Anion Gap 11 (12-20); Aspartate Amino Transferase 23 U/L (5-37); Bilirubin Total 0.5 mg/dL (0.0-1.0); Blood Urea Nitrogen 13 mg/dL (9-16); Calcium 9.6 mg/dL (8.4-10.2); Carbon Dioxide 28 mmol/L (22-29); Chloride 102 mmol/L (96-108); Cholesterol 135 mg/dL (<200); Estimated Glomerular Filt Rate > 60; Glucose Fasting 93 mg/dL (60-99); HDL Cholesterol 74 mg/dL (>40); LDL Cholesterol Calculated 56 mg/dL (<100); Sodium 137 mmol/L (135-145); Total Protein 7.1 g/dL (6.5-8.0); Triglycerides 27 mg/dL (<150)
[2023-04-12 11:49] LABS: PSA,Total (Free>4and<10) 0.44 ng/mL (0.00-4.00)
== END 2023-04-12 08:47 | disposition home or self-care (01) ==
LOC: HO.HMGCLDS 08:46
PROVIDERS: PCP Internal Medicine; Visit Provider Internal Medicine
DX: Z00.00 Encounter for general adult medical examination without abnormal findings (principal); Z12.5 Encounter for screening for malignant neoplasm of prostate; R56.9 Unspecified convulsions; I48.91 Unspecified atrial fibrillation; I63.9 Cerebral infarction, unspecified
CPT/HCPCS: 36415; 80053; 80061; 84153; 85025

== ENCOUNTER → 2023-06-06 07:45 | Outpatient (REF) | payer BC, SELFPAY ==
--- NOTE | 2023-06-06 07:48 | CA_ITS ---
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 The visually estimated ejection fraction is between 60-65%. - There is mild septal asymmetric hypertrophy. - Mildly increased right ventricular cavity size. There is normal right ventricular systolic function. - Mildly elevated right atrial pressure. Mild pulmonary hypertension is present. - There is mild dilatation of the sinuses of Valsalva measuring 4.15 cm and mild dilatation of the ascending aorta measuring 4.30 cm. Findings Procedure Information Contrast agent, definity, is being given per protocol without apparent complications. Left Ventricle Normal left ventricular size and systolic function. The visually estimated ejection fraction is between 60-65%. There is no evidence of regional wall motion abnormalities. Abnormal diastolic function is noted. Spectral Doppler is indicative of an impaired relaxation filling pattern. Normal left ventricular filling pressures. There is mild septal asymmetric hypertrophy. Right Ventricle Mildly increased right ventricular cavity size. There is normal right ventricular systolic function. Atria The left atrium is mildly dilated. The right atrium is likely dilated. Aortic Valve Normal aortic valve structure and function. There is no aortic valve stenosis. There is trace (trivial) aortic valve regurgitation. Mitral Valve The mitral valve appears normal. There is no mitral valve regurgitation. There is no mitral valve stenosis. Pulmonic Valve Normal pulmonic valve structure and function. There is trace pulmonic valve regurgitation. Tricuspid Valve Normal tricuspid valve structure. There is trace tricuspid valve regurgitation. The right ventricular systolic pressure is 39 mmHg. Mildly elevated right atrial pressure. Mild pulmonary hypertension is present. Great Vessels There is mild dilatation of the sinuses of Valsalva measuring 4.15 cm and mild dilatation of the ascending aorta measuring 4.30 cm. Venous The inferior vena cava is dilated and collapses greater than 50% with inspiration. Pericardium/Pleural There is no evidence of pericardial effusion. Prior Study Comparison Changes noted compared to prior study dated: 05/23/2022. Mild pulm HTN. Ascending aorta appears to be similar in size. Measurements 2D Linear Measurements IVSd: 1.20 0.6-0.9/0.6-1.0 cm LVIDd: 4.97 3.9-5.3/4.2-5.9 cm LVIDd Index: 2.73 2.4-3.2/2.2-3.1 cm/m2 LVIDs: 3.33 2.0-3.6 cm LVPWd: 0.89 0.7-1.1 cm LA Diam: 3.00 2.7-3.8/3.0-4.0 cm LAIDs Index: 1.65 1.5-2.3 cm/m2 LV Mass: 238.30 67-162/88-224 g LV Mass Index: 130.93 43-95/49-115 g/m2 LVOT Diam: 2.30 3.0+(-)1.3 cm Mitral Valve MV Pk E: 0.57 MV PK A: 0.76 MV Decel Time: 256.00 E/A: 0.70 E'Lateral: 8.16 E'Medial: 4.03 E/E' Med: 14.00 E/E' Lat: 6.90 PHT: 75.00 MVA PHT: 2.93 Decel Dickenson: 2.21 Aortic Valve AoV Pk Primo: 1.33 AoV Mn Primo: 0.92 AoV VTI: 0.30 AoV Pk Grad: 7.00 Aov Mn Grad: 4.00 ALICIA Cont.VTI: 2.32 LVOT LVOT Pk Primo: 0.86 LVOT Mn Primo: 0.53 LVOT VTI: 0.17 LVOT Pk Grad: 3.00 LVOT Mn Grad: 1.00 LVOT Diam: 2.30 LVOT Area: 4.15 Diastolic Function MV Pk E: 0.57 MV Pk A: 0.76 E/A: 0.70 E'Medial: 4.03 E/E' Med: 14.00 E' Laterial: 8.16 E/E' Lat: 6.90 Right Ventricle TAPSE (mm): 16.80 TVS' Primo: 13.10 Tricuspid Valve TR Pk Primo: 2.77 TR Pk Grad: 31.00 RA Press: 8.00 RVSP: 39.00 Great Vessels Aorta Sinus of Valsalva: 4.15 2.0-3.[address] [place]: 3.06 1.7-3.4 cm Ao Asc: 4.30 2.1-3.4 cm Ao Arch: 3.00 Updated in Other Vendor System with Status of Final Shawn Ortiz MD electronically signed on 06/08/2023 12:53:13 PM with status of Final
== END ==
LOC: HO.CARD 07:45
PROVIDERS: PCP Internal Medicine; Visit Provider Internal Medicine
DX: I77.810 Thoracic aortic ectasia (principal)
CPT/HCPCS: 93306; Q9957

== ENCOUNTER → 2023-06-06 07:48 | Outpatient (BNV) | payer BC, SELFPAY | PROVIDERS: PCP Internal Medicine; Visit Provider Internal Medicine Cardiovascular Disease | DX: I77.810 Thoracic aortic ectasia (principal) | CPT/HCPCS: 93306 ==

== ENCOUNTER 2023-06-25 08:58 | Outpatient (AMB) | payer BC, SELFPAY ==
[2023-06-25 09:20] VITALS: BP 138/62; PULSE 59; BMI 22.5
--- NOTE | 2023-06-25 09:20 | A.OFFVIS_ITS ---
Intake Vital Signs 06/25/23 09:20 Height 5 ft 9 in Weight 152 lb 1.903 oz BMI 22.5 BP 138/62 Blood Pressure Location Lt brachial Position Sitting Pulse 59 Intake Visit Reasons: 1 yr s/p echo Intake Note: 1 year follow up w/ EKG Sourcer Required: No Accompanied by: Self / Same As Patient Allergies valproic acid Adverse Reaction (Intermediate, Verified 06/25/23 09:21) Hyponatremia Medication List - Last Reconciled 06/25/23 by Delroy Goyal MD atorvastatin 20 mg PO DAILY diltiazem HCl ER (DILT-XR) 180 mg PO DAILY levetiracetam 750 mg PO DAILY rivaroxaban (Xarelto) 20 mg PO DAILY 90 days HPI HPI Comments History of Present Illness Details Abdiaziz returns for follow-up regarding atrial flutter. In the past, he was admitted for shortness of breath and palpitations. Then detected to have atrial flutter. Rate control was difficult. Subsequently attempted SHAYLA, but could not pass probe. Then sent home on rate control medications and anticoagulation, but he converted to sinus by himself. In the last few years, he is generally doing fine. No new complaints. Nothing cardiac related. [facility] Medical History PVC (premature ventricular contraction) Esophageal abnormality Thrombocytopenia Atrial flutter by electrocardiogram Surgical History History of esophagogastroduodenoscopy (EGD) Hx of colonoscopy History of shoulder surgery (~06/15/14) Family History Father No problems noted. Mother No problems noted. Social History Housing: House Alcohol intake: never Patient Tobacco Use Status: Former Tobacco user Current occupational status: employed Cognitive needs: No Hearing needs: No Vision needs: Yes Review of Systems Const Denies weakness ENT Denies dizziness Card Denies chest pain, Denies chest pain with activity, Denies syncope, Denies rapid heart rate, Denies pedal edema, Denies edema, Denies leg edema, Denies light headedness, Denies palpitations, Denies dyspnea, Denies dyspnea on exertion and Denies orthopnea Resp Denies cough, Denies dyspnea and Denies dyspnea on exertion GI Denies hematochezia and Denies change in stool character Musc Denies abnormal gait, Denies muscle cramps, Denies muscle weakness, Denies numbness, Denies radiating pain into limb and Denies tingling Neuro Denies abnormal gait, Denies dizziness, Denies syncope, Denies numbness, Denies tingling and Denies weakness Endo Denies palpitations Physical Exam Vital Signs: Last Vital Signs Pulse 59 06/25/23 09:20 BP 138/62 06/25/23 09:20 BMI result Body Mass Index 22.5 Const General: comfortable and no acute distress Orientation/consciousness: patient oriented x3 HEENT Other: Unremarkable Head: Yes normal to inspection Neck Neck: Yes normal visual inspection Chest Chest palpation & inspection: normal inspection of the chest Resp Auscultation: clear to auscultation bilaterally Cardio Palpation: normal PMI Heart sounds: S1 normal heart sound present, S2 normal heart sound present, no gallops, no murmurs and no rubs GI Palpation (GI): Soft to palpation Back/Spine/Pelvis Other: unremarkable Skin General skin exam: no rashes or lesions noted Neuro General: patient oriented x3 Extrem General: Yes normal to inspection Psych Mental Status: mental status grossly normal Office Procedures EKG Details: EKG with sinus bradycardia at 59/Min; MN prolongation to 210 milliseconds; PVC. Artifact tracing. [id number], Complete Assessment & Plan Assessment & Plan (1) Paroxysmal atrial flutter: Code(s): I48.92 - Unspecified atrial flutter Plan: Stable. Continue diltiazem and Xarelto. (2) Ascending aorta dilatation: Code(s): I77.810 - Thoracic aortic ectasia Plan: In the most recent echocardiogram, 4.3 cm. No significant change. Recheck in 1 year. Orders: Orders CA echo transthoracic complete 1 Year I77.810 - Thoracic aortic ectasia Coding Level of Care Code Est Pt Level 3 (94863) Diagnoses Paroxysmal atrial flutter I48.92 Ascending aorta dilatation I77.810 CPT Codes EKG - CPT: 47277-[id number], Complete ([id number])
== END 2023-06-25 09:47 | disposition home or self-care (01) ==
PROVIDERS: PCP Internal Medicine; Visit Provider Internal Medicine
DX: I48.92 Unspecified atrial flutter (principal); I77.810 Thoracic aortic ectasia
CPT/HCPCS: 93010; 99213

== ENCOUNTER → 2023-06-25 08:58 | Outpatient (BNVA) | payer BC, SELFPAY | PROVIDERS: PCP Internal Medicine; Visit Provider Internal Medicine | DX: I48.92 Unspecified atrial flutter (principal); I77.810 Thoracic aortic ectasia; Z79.01 Long term (current) use of anticoagulants; Z79.899 Other long term (current) drug therapy | CPT/HCPCS: 93005 ==

== ENCOUNTER 2024-01-14 11:43 | Outpatient (AMB) | payer BC, SELFPAY ==
[2024-01-14 12:16] VITALS: BP 130/80; PULSE 62; O2SAT 99; BMI 21.0
--- NOTE | 2024-01-14 12:16 | MHC.PC.OV ---
Vital Signs 01/14/24 12:16 Height 5 ft 9 in Weight 142 lb BMI 21.0 BP 130/80 Blood Pressure Location Rt brachial Position Sitting Pulse 62 Pulse Source Pulse Oximeter Pulse Oximetry (%) 99 Oxygen Delivery Method Room Air Intake Visit Reasons: PE Intake Note: Pt is here today for PE. Allergies valproic acid Adverse Reaction (Intermediate, Verified 01/14/24 12:29) Hyponatremia Medication List - Last Reconciled 01/14/24 by Mily Begum MD atorvastatin 20 mg PO DAILY diltiazem HCl ER (DILT-XR) 180 mg PO DAILY levetiracetam 750 mg PO DAILY rivaroxaban (Xarelto) 20 mg PO DAILY 90 days Tobacco use date assessed: 01/14/24 Fall risk assessment: No Falls in past year Last assessed Fall Risk: 01/14/24 Dental Screening Dental Screen Date: 01/14/24 Did you have a dental visit in the last 12 months?: Yes Did you have a dental problem in the last 6 months where you did not have access to dental care?: No Was dental information given to patient?: Patient has dentist HPI PE HPI Details Pt presents for PE PFSH Medical History (Updated 01/14/24 @ 13:13 by Mily Begum MD) PVC (premature ventricular contraction) Surgical History History of esophagogastroduodenoscopy (EGD) Hx of colonoscopy History of shoulder surgery (~06/15/14) Family History Father No problems noted. Mother No problems noted. Social History Housing: House Alcohol intake: never Patient Tobacco Use Status: Former Tobacco user e-Cigarette/Vaping Use: Never Used Current occupational status: employed Cognitive needs: No Hearing needs: No Vision needs: Yes Questionnaire PHQ-9 Over the last 2 weeks, how often have you been bothered by any of the following problems? 1. Little interest or pleasure in doing things: not at all 2. Feeling down, depressed, or hopeless: not at all 3. Trouble falling or staying asleep, or sleeping too much: not at all 4. Feeling tired or having little energy: not at all 5. Poor appetite or overeating: not at all 6. Feeling bad about yourself - or that you are a failure or have let yourself or your family down: not at all 7. Trouble concentrating on things, such as reading the newspaper or watching television: not at all 8. Moving or speaking so slowly that other people could have noticed. Or the opposite - being so fidgety or restless that you have been moving around a lot more than usual: not at all 9. Thoughts that you would be better off or of hurting yourself in some way: not at all Total score: 0 Depression Screening Interpretation: Negative Depression Screening Done: Yes 19140 - PHQ-9 Billing: Yes Source: Developed by Drs. Abe Garza, Layne Dee, Sly Alvarado and colleagues, with an educational tianna from [employer]. Thrive Questionnaire Date Thrive assessed: 01/14/24 I am a: Patient What is your living situation today?: I have a steady place to live Within the past 12 months, did the food you bought not last and you didn't have the money to get more?: Never true Within the past 12 months, did you worry whether your food would run out before you got money to buy more?: Never true Do you have trouble paying for medicines?: No Do you have trouble getting transportation to medical appointments?: No Do you have trouble paying your heating and electricity bill?: No Do you have trouble taking care of your child, family member or friend?: No Do you have trouble with day-to-day activities such as bathing, preparing meals, shopping, managing finances, etc.?: No Are you interested in more education?: No Please select the resources that you would like help with: None Currently or been in a relationship where the following occur: No concerns reported THRIVE Score: 0 AUDIT C Alcohol Use Questionnaire (AUDIT-C) 1. How often do you have a drink containing alcohol?: Never 3. How often do you have six or more drinks on one occasion?: Never Total Score: 0 VIPIN-7 AMB Questionnaire VIPIN-7 Date VIPIN - 7 assessed: 01/14/24 Feeling nervous, anxious, or on edge: 0 = Not at all Not being able to stop or control worryin = Not at all Worrying too much about different things: 0 = Not at all Trouble relaxin = Not at all Being so restless that it is hard to sit still: 0 = Not at all Becoming easily annoyed or irritable: 0 = Not at all Feeling afraid as if something awful might happen: 0 = Not at all Total VIPIN-7 score (0-4 normal; 5-9 mild; 10-14 moderate; 15-21 severe): 0 Source: Developed by Drs. Abe Garza, Layne Dee, Sly Alvarado and colleagues, with an educational tianna from [employer]. VIPIN-7 Assessment Billing VIPIN-7 Assessment Tool: VIPIN-7 Assessment 41602 Review of Systems Const All systems reviewed & are unremarkable except as noted in HPI and below Eyes Reports no additional complaints ENT Reports no additional complaints Card Reports no additional complaints Resp Reports no additional complaints GI Reports no additional complaints Reports no additional complaints Physical exam (Primary Care) Vital Signs: Last Vital Signs Pulse 62 01/14/24 12:16 Pulse Ox 99 01/14/24 12:16 Oxygen Delivery Method Room Air 01/14/24 12:16 BMI result Body Mass Index 21.0 Tobacco/Smoking Status: Tobacco use Status Tobacco use date assessed 01/14/24 01/14/24 12:32 Patient Tobacco Use Status Former Tobacco user 01/14/24 12:17 e-Cigarette/Vaping Use Never Used 01/14/24 12:32 PHQ-9: PHQ-9 Score PHQ-9: Total score 0 01/14/24 12:32 Depression Screening Interpretation: Negative Thrive Assessment: Date of Thrive Assessment Date Thrive assessed 01/14/24 01/14/24 12:32 Currently or been in a relationship where the following occur: No concerns reported Const General: no acute distress HENMT Head: Yes normal to inspection Ears: hearing grossly normal bilaterally Face and sinus: Yes normal facial exam Mouth: Normal oral and palatal mucosa present Eyes General: appearance normal, both eyes and all related structures Neck Neck: Yes no lymphadenopathy and Yes supple Resp Effort & Inspection: normal respiratory effort Auscultation: clear to auscultation bilaterally Cardio Rhythm: regular rhythm Heart sounds: S1 normal heart sound present and S2 normal heart sound present GI Inspection: Yes normal to inspection Palpation (GI): Soft to palpation Percussion: Yes normal to percussion Auscultation: normal bowel sounds Extrem General: Yes no clubbing, cyanosis or edema Assessment and Plan Assessment & Plan (1) Paroxysmal atrial flutter: Comment: [place] [facility] [place] negative Code(s): I48.92 - Unspecified atrial flutter Plan: Continue diltiazem and Xarelto (2) Bullous pemphigoid: Comment: f/u Dr. Nishant BELL, on methotrexate Code(s): L12.0 - Bullous pemphigoid Plan: Follow-up with dermatology (3) Seizure: Comment: no seizure activity in 10 years, f/u with neurology Code(s): R56.9 - Unspecified convulsions Plan: Continue current medications follow-up with Neurology (4) Annual physical exam: Code(s): Z00.00 - Encounter for general adult medical examination without abnormal findings Plan: Well-balanced diet regular physical activity discussed with the patient. He is up-to-date with colonoscopy. Patient will return for fasting blood work and physical in 1 year (5) Cough: Code(s): R05.9 - Cough, unspecified Plan: For chronic intermittent cough check chest x-ray (6) CVA (cerebral vascular accident): Comment: MRI brain R parietal lacular infarcts Code(s): I63.9 - Cerebral infarction, unspecified Plan: Continue Xarelto (7) Ascending aorta dilatation: Comment: [place] 07[place]11, [place] [facility] [place] Code(s): I77.810 - Thoracic aortic ectasia Plan: Follow-up with cardiology Orders: Orders Complete Blood Count Auto Diff Today I48.92 - Unspecified atrial flutter, L12.0 - Bullous pemphigoid, R56.9 - Unspecified convulsions, Z00.00 - Encounter for general adult medical examination without abnormal findings Comprehensive [place]. Panel Fast Today I48.92 - Unspecified atrial flutter, L12.0 - Bullous pemphigoid, R56.9 - Unspecified convulsions, Z00.00 - Encounter for general adult medical examination without abnormal findings PSA,Total (Free>4and<10) Today I48.92 - Unspecified atrial flutter, L12.0 - Bullous pemphigoid, R56.9 - Unspecified convulsions, Z00.00 - Encounter for general adult medical examination without abnormal findings UA w Microscopic Today I48.92 - Unspecified atrial flutter, L12.0 - Bullous pemphigoid, R56.9 - Unspecified convulsions, Z00.00 - Encounter for general adult medical examination without abnormal findings Complete Blood Count Auto Diff 1 Year I63.9 - Cerebral infarction, unspecified, L12.0 - Bullous pemphigoid, R56.9 - Unspecified convulsions, Z00.00 - Encounter for general adult medical examination without abnormal findings Lipid Panel 1 Year I63.9 - Cerebral infarction, unspecified, L12.0 - Bullous pemphigoid, R56.9 - Unspecified convulsions, Z00.00 - Encounter for general adult medical examination without abnormal findings PSA,Total (Free>4and<10) 1 Year I63.9 - Cerebral infarction, unspecified, L12.0 - Bullous pemphigoid, R56.9 - Unspecified convulsions, Z00.00 - Encounter for general adult medical examination without abnormal findings Lipid Panel Today I48.92 - Unspecified atrial flutter, L12.0 - Bullous pemphigoid, R56.9 - Unspecified convulsions, Z00.00 - Encounter for general adult medical examination without abnormal findings XR chest 2V Today R05.9 - Cough, unspecified Comprehensive [place]. Panel Fast 1 Year I63.9 - Cerebral infarction, unspecified, L12.0 - Bullous pemphigoid, R56.9 - Unspecified convulsions, Z00.00 - Encounter for general adult medical examination without abnormal findings Coding Level of Care Code Est Pt Prev Care >65y(39074) Diagnoses Paroxysmal atrial flutter I48.92 Bullous pemphigoid L12.0 Seizure R56.9 Annual physical exam Z00.00 Cough R05.9 CVA (cerebral vascular accident) I63.9 Ascending aorta dilatation I77.810 Additional Codes VIPIN-7 Assessment Billing - VIPIN-7 Assessment Tool: VIPIN-7 Assessment 11608 ([id number])
== END 2024-01-14 13:14 | disposition home or self-care (01) ==
PROVIDERS: PCP Internal Medicine; Visit Provider Internal Medicine
DX: Z00.00 Encounter for general adult medical examination without abnormal findings (principal); I48.92 Unspecified atrial flutter; L12.0 Bullous pemphigoid; R56.9 Unspecified convulsions; I77.810 Thoracic aortic ectasia; I63.9 Cerebral infarction, unspecified; R05.9 Cough, unspecified

== ENCOUNTER → 2024-01-14 11:43 | Outpatient (BNVA) | payer BC, SELFPAY | PROVIDERS: PCP Internal Medicine; Visit Provider Internal Medicine | DX: Z00.00 Encounter for general adult medical examination without abnormal findings (principal) ==

== ENCOUNTER 2024-01-14 13:06 | Outpatient (REF) | payer BC, SELFPAY ==
--- NOTE | ~2024-01-14 | XR_ITS ---
EXAMINATION: XR CHEST CLINICAL INFORMATION: R05.9 - Cough, unspecified COMPARISON: 08/24/2014. CTA chest PE protocol 08/15/2018. TECHNIQUE: 2 views of the chest were obtained. FINDINGS: Cardiac enlargement redemonstrated. Mediastinal and hilar contours appear normal. The lungs are diffusely hyperinflated and hyperlucent, however clear bilaterally. There is no pneumothorax or pleural effusion. There is no focal osseous or soft tissue abnormality. Degenerative changes of the spine noted left shoulder joint. XR/XR chest 2V IMPRESSION: 1. COPD. No active superimposed disease. 2. Stable Cardiac enlargement. Electronically signed by: Coleman Ashford MD 03/22/2024 01:41 PM EST
== END 2024-01-14 13:07 | disposition home or self-care (01) ==
LOC: HO.HMGCX 13:06
PROVIDERS: PCP Internal Medicine; Visit Provider Internal Medicine
DX: R05.9 Cough, unspecified (principal); I48.92 Unspecified atrial flutter; L12.0 Bullous pemphigoid; R56.9 Unspecified convulsions
CPT/HCPCS: 71046; 96127

== ENCOUNTER → 2024-01-14 13:08 | Outpatient (BNV) | payer BC, SELFPAY | PROVIDERS: PCP Internal Medicine; Visit Provider Radiology Diagnostic Radiology | DX: R05.9 Cough, unspecified (principal) | CPT/HCPCS: 71046 ==

== ENCOUNTER 2024-01-17 08:24 | Outpatient (REF) | payer BC, SELFPAY ==
[2024-01-17 08:43] LABS: MANUAL DIFF FLAG NO
[2024-01-17 09:36] LABS: Basophils Absolute Auto 0.1 X10*3/uL (0.0-0.2); Basophils Percent Auto 1.1 % (0-2); Eosinophils Absolute Auto 0.4 X10*3/uL (0.0-0.4); Hematocrit 44.2 % (42.0-52.0); Hemoglobin 15.2 g/dl (14.0-18.0); Imm Gran Abs Auto 0.02 X10*3/uL (0.00-0.03); Imm Gran Pct Auto 0.4 % (0.0-0.4); Lymphocytes Absolute Auto 0.9 X10*3/uL (1.2-4.9); Mean Corpuscular HGB Conc 34.4 g/dl (31.0-36.0); Mean Corpuscular Hemoglobin 31.9 pg (27.0-33.0); Mean Corpuscular Volume 92.9 fL (80.0-98.0); Mean Platelet Volume 10.9 fL (9.4-12.4); Monocytes Absolute Auto 0.4 X10*3/uL (0.1-1.2); Monocytes Percent Auto 8.3 % (2-11); Neutrophils Absolute Auto 2.9 x10*3/uL (2.0-8.3); Neutrophils Percent Auto 62.2 % (45-73); Platelet Count 109 X10*3/uL (160-400); Red Blood Count 4.76 X10*6/uL (4.60-5.80); Red Cell Distribution Width 13.2 % (11.0-16.0); White Blood Count 4.6 X10*3/uL (4.8-10.8)
[2024-01-17 10:15] LABS: Alanine Aminotransferase 16 U/L (0-40); Albumin Level 4.2 g/dL (3.5-5.0); Alkaline Phosphatase 109 U/L (39-117); Anion Gap 9 (12-20); Aspartate Amino Transferase 20 U/L (5-37); Bilirubin Total 0.5 mg/dL (0.0-1.0); Blood Urea Nitrogen 11 mg/dL (9-16); Calcium 9.5 mg/dL (8.4-10.2); Carbon Dioxide 30 mmol/L (22-29); Chloride 103 mmol/L (96-108); Cholesterol 130 mg/dL (<200); Estimated Glomerular Filt Rate > 60; Glucose Fasting 99 mg/dL (60-99); HDL Cholesterol 70 mg/dL (>40); LDL Cholesterol Calculated 54 mg/dL (<100); Sodium 138 mmol/L (135-145); Total Protein 6.8 g/dL (6.5-8.0); Triglycerides 34 mg/dL (<150)
[2024-01-17 10:50] LABS: Appearance Urine Clear; Color Urine Yellow; Glucose Urine UA Negative (Negative); Leukocyte Esterase Urine Negative (Negative); Nitrite Urine Negative (Negative); PH 8.5 (5.0-9.0); Specific Gravity - Urine 1.015 (1.005-1.025); Urine Blood Negative (Negative); Urine Ketones Negative (Negative); Urine Protein Negative (Neg-Trace)
[2024-01-17 10:57] LABS: Bacteria Urine None Seen (None Seen); Hyaline Casts Urine 0-2 /LPF (0-2); RBC Urine 0-2 /HPF (0-2); Squamous Epithelial Cell Urine 0-2 /HPF (0-2); WBC Urine 0-5 /HPF (0-5)
== END 2024-01-17 08:25 | disposition home or self-care (01) ==
LOC: HO.LAB 08:24
PROVIDERS: PCP Internal Medicine; Visit Provider Internal Medicine
DX: Z00.00 Encounter for general adult medical examination without abnormal findings (principal); R56.9 Unspecified convulsions; L12.0 Bullous pemphigoid; I48.92 Unspecified atrial flutter; Z12.5 Encounter for screening for malignant neoplasm of prostate
CPT/HCPCS: 36415; 80053; 80061; 81001; 84153; 85025

== ENCOUNTER → 2024-07-27 14:17 | Outpatient (REF) | payer BC, SELFPAY ==
--- NOTE | 2024-07-27 14:21 | CA_ITS ---
Transthoracic Echocardiogram Patient (Last, First, Middle): Abdiaziz Stern F Gender: Male Date of : 1955 Age: 69 Procedure Date: 07/27/2024 Procedure Type: Transthoracic Echocardiogram Location: OP Height: 175.26 cm Weight: 64.41 kg BSA: 1.79 m2 Heart Rate: bpm BP: 130 / 80 mmHg Clerical Manager: TUAN Referring MD: Jacob Ibarra MD Symptoms: I63.9 - Cerebral infarction, unspecified Study Quality: Technically Difficult, contrast Conclusions: - The left ventricular systolic function is normal. The calculated ejection fraction is 64% by biplane method. - The basal inferolateral segment is hypokinetic. - There is mild calcification of the aortic valve. - Mild pulmonary hypertension is present. - There is mild dilatation of the sinuses of Valsalva measuring 4.13 cm and mild dilatation of the ascending aorta measuring 4.30 cm. Findings Procedure Information Contrast agent, definity, is being given per protocol without apparent complications. The study quality is limited by patients body habitus. Left Ventricle Normal left ventricular cavity size. There is normal left ventricular wall thickness. The left ventricular systolic function is normal. The calculated ejection fraction is 64% by biplane method. There is no evidence of regional wall motion abnormalities. Diastolic function is normal for age. Wall Motion Rest Echo Findings The basal inferolateral segment is hypokinetic. Right Ventricle Moderately increased right ventricular cavity size. There is normal right ventricular systolic function. Atria Both atria are normal in size. Aortic Valve There is a normal trileaflet aortic valve. There is mild calcification of the aortic valve. There is no aortic valve stenosis. There is mild aortic valve regurgitation. Mitral Valve The mitral valve appears normal. There is no mitral valve regurgitation. There is no mitral valve stenosis. Pulmonic Valve The pulmonic valve is likely normal. There is trace pulmonic valve regurgitation. Tricuspid Valve There is mild tricuspid valve regurgitation. Mild pulmonary hypertension is present. Great Vessels There is mild dilatation of the sinuses of Valsalva measuring 4.13 cm and mild dilatation of the ascending aorta measuring 4.30 cm. Venous The inferior vena cava is mildly dilated and collapses greater than 50% with inspiration. Pericardium/Pleural There is no evidence of pericardial effusion. Prior Study Comparison No significant change compared to prior study dated: 06/06/2023. Measurements 2D Linear Measurements IVSd: 0.87 0.6-0.9/0.6-1.0 cm LVIDd: 4.77 3.9-5.3/4.2-5.9 cm LVIDd Index: 2.66 2.4-3.2/2.2-3.1 cm/m2 LVIDs: 3.37 2.0-3.6 cm LVPWd: 0.90 0.7-1.1 cm LA Diam: 2.80 2.7-3.8/3.0-4.0 cm LAIDs Index: 1.56 1.5-2.3 cm/m2 LV Mass: 177.78 67-162/88-224 g LV Mass Index: 99.32 43-95/49-115 g/m2 LVOT Diam: 2.30 3.0+(-)1.3 cm 2D Systolic Function EF 4C: 61.50 >55% EF 2C: 66.50 >55% EF BiP: 63.50 >55% Mitral Valve MV Pk E: 0.60 MV PK A: 0.69 MV Decel Time: 298.00 E/A: 0.90 E'Lateral: 6.96 E'Medial: 5.44 E/E' Med: 11.10 E/E' Lat: 8.70 PHT: 87.00 MVA PHT: 2.53 Decel Craig: 2.03 Aortic Valve AoV Pk Primo: 1.19 AoV Mn Primo: 0.84 AoV VTI: 0.27 AoV Pk Grad: 6.00 Aov Mn Grad: 3.00 ALICIA Cont.VTI: 2.97 LVOT LVOT Pk Primo: 0.85 LVOT Mn Primo: 0.50 LVOT VTI: 0.19 LVOT Pk Grad: 3.00 LVOT Mn Grad: 1.00 LVOT Diam: 2.30 LVOT Area: 4.15 Diastolic Function MV Pk E: 0.60 MV Pk A: 0.69 E/A: 0.90 E'Medial: 5.44 E/E' Med: 11.10 E' Laterial: 6.96 E/E' Lat: 8.70 Right Ventricle TAPSE (mm): 24.80 TVS' Primo: 10.70 Tricuspid Valve TR Pk Primo: 2.76 TR Pk Grad: 30.00 RA Press: 15.00 RVSP: 45.00 Great Vessels Aorta Sinus of Valsalva: 4.13 2.0-3.[address] [place]: 3.36 1.7-3.4 cm Ao Asc: 4.30 2.1-3.4 cm Updated in Other Vendor System with Status of Final Delroy Goyal MD electronically signed on 07/28/2024 12:48:20 PM with status of Final
== END ==
LOC: HO.CARD 14:17
PROVIDERS: PCP Internal Medicine; Visit Provider Internal Medicine
DX: I63.9 Cerebral infarction, unspecified (principal); I51.7 Cardiomegaly; I77.810 Thoracic aortic ectasia
CPT/HCPCS: 93306; Q9957

== ENCOUNTER → 2024-07-27 14:21 | Outpatient (BNV) | payer BC, SELFPAY | PROVIDERS: PCP Internal Medicine; Visit Provider Internal Medicine | DX: I27.20 Pulmonary hypertension, unspecified (principal); I35.1 Nonrheumatic aortic (valve) insufficiency; I36.1 Nonrheumatic tricuspid (valve) insufficiency; I77.810 Thoracic aortic ectasia | CPT/HCPCS: 93306 ==

== ENCOUNTER 2024-08-12 12:25 | Outpatient (AMB) | payer BC, SELFPAY ==
--- NOTE | 2024-08-12 12:49 | A.OFFVIS_ITS ---
Vital Signs 08/12/24 12:51 Height 5 ft 9 in Weight 143 lb 11.862 oz BMI 21.2 BP 130/72 Blood Pressure Location Lt brachial Position Sitting Pulse 59 Pulse Source Monitor Intake Visit Reasons: follow up s/p Echo Senior Sales Administrator Required: No Accompanied by: Self / Same As Patient Allergies valproic acid Adverse Reaction (Intermediate, Verified 01/14/24 12:29) Hyponatremia Medication List - Last Reconciled 08/12/24 by Delroy Goyal MD atorvastatin 20 mg PO DAILY diltiazem HCl ER (DILT-XR) 180 mg PO DAILY levetiracetam 750 mg PO DAILY rivaroxaban (Xarelto) 20 mg PO DAILY 90 days HPI Comments Details: Abdiaziz returns for follow-up regarding atrial flutter. In the past, he was admitted for shortness of breath and palpitations. Then detected to have atrial flutter. Rate control was difficult. Subsequently attempted SHAYLA, but could not pass probe. Then sent home on rate control medications and anticoagulation, but he converted to sinus by himself. He states overall, he is doing good and no specific cardiac concerns. Exercise The patient engages in active physical work as part of his employment in [employer]. No limitations or adverse symptoms have been reported during these activities. A stress test is planned to further assess cardiac function under exertion. [facility] Medical History (Updated 08/12/24 @ 13:09 by Delroy Goyal MD) PVC (premature ventricular contraction) Surgical History History of esophagogastroduodenoscopy (EGD) Hx of colonoscopy History of shoulder surgery (~06/15/14) Family History Father No problems noted. Mother No problems noted. Social History Housing: House Alcohol intake: never Patient Tobacco Use Status: Former Tobacco user e-Cigarette/Vaping Use: Never Used Current occupational status: employed Cognitive needs: No Hearing needs: No Vision needs: Yes Review of Systems Const Denies chills, Denies fatigue, Denies fever(s), Denies frequent falls, Denies weakness, Denies weight gain and Denies weight loss ENT Denies dizziness Card Denies chest pain, Denies leg edema, Denies lightheadedness, Denies palpitations, Denies dyspnea and Denies dyspnea on exertion Resp Denies cough, Denies dyspnea and Denies dyspnea on exertion GI Denies hematochezia Musc Denies abnormal gait, Denies muscle weakness, Denies numbness, Denies radiating pain into limb and Denies tingling Neuro Denies abnormal gait, Denies dizziness, Denies frequent falls, Denies numbness, Denies tingling and Denies weakness Endo Denies fatigue and Denies palpitations Physical Exam Vital Signs: Last Vital Signs Pulse 59 08/12/24 12:51 BP 130/72 08/12/24 12:51 BMI result Body Mass Index 21.2 Const General: comfortable and no acute distress Orientation/consciousness: patient oriented x3 HEENT Other: Unremarkable Head: Yes normal to inspection Neck Neck: Yes normal visual inspection Chest Chest palpation & inspection: normal inspection of the chest Resp Auscultation: clear to auscultation bilaterally Cardio Palpation: normal PMI Heart sounds: S1 normal heart sound present, S2 normal heart sound present, no gallops, no murmurs and no rubs GI Palpation (GI): Soft to palpation Back/Spine/Pelvis Other: unremarkable Skin General skin exam: no rashes or lesions noted Neuro General: patient oriented x3 Extrem General: Yes normal to inspection Psych Mental Status: mental status grossly normal Office Procedures EKG Details: EKG with sinus bradycardia at 59/Min; cannot exclude old inferior infarct; [place]. [id number], Complete Assessment & Plan Assessment & Plan (1) Paroxysmal atrial flutter: Code(s): I48.92 - Unspecified atrial flutter Category: Medical Plan: Stable. Continue diltiazem and Xarelto. (2) Ascending aorta dilatation: Comment: Echo 07/11, f/u [facility] [place] Code(s): I77.810 - Thoracic aortic ectasia Category: Medical Plan: In the most recent echocardiogram, 4.3 cm. No significant change. Recheck in 1 year. (3) Regional wall motion abnormality of heart: Code(s): R93.1 - Abnormal findings on diagnostic imaging of heart and coronary circulation Category: Medical Plan: In the recent echocardiogram, basal inferolateral wall thought to be hypokinetic. Discussed about this with the patient. EKG shows possible prior inferior infarct. Slightly different from before. He has got no overt symptoms but we can proceed with an exercise stress perfusion imaging study for further evaluation. He agrees. Plan Discussion Notes During our consultation, I discussed the current finding of aortic dilatation and the need for regular monitoring to gauge any progression. Regarding myocardial function, exploration into a potential regional wall motion abnormality will be thoroughly pursued with a stress test, considering the considerable time that has lapsed since the last test. We deliberated the absence of any significant cardiac or symptomatic limitations in daily activities. The patient understands the implications and benefits of the proposed stress testing, including the procedural simplicity and diagnostic value, with consent duly provided. We also reviewed potential impacts of insurance changes post-longterm and assured continuity of care. Follow-up instructions were clearly relayed. Patient was informed and verbally consented to the use of an ambient scribe for clinic note documentation during this visit. Orders: Orders CA stress test Today R07.2 - Precordial pain NM cardiolite stress test Today R07.2 - Precordial pain Patient Instructions: - Continue with regular follow-up appointments. - Undergo the scheduled stress test as advised. - Monitor for any changes in symptoms like chest pain or shortness of breath and report immediately. - Discuss any concerns about future health coverage and any paperwork for insurance changes. - Attend yearly cardiovascular assessments and complete any required diagnostic imaging. Coding Level of Care Code Est Pt Level 4 (58795) Complex EM visit Add On G2211 Diagnoses Paroxysmal atrial flutter I48.92 Ascending aorta dilatation I77.810 Regional wall motion abnormality of heart R93.1 CPT Codes EKG - CPT: 28316-[id number], Complete ([id number])
[2024-08-12 12:51] VITALS: BP 130/72; PULSE 59; BMI 21.2
== END 2024-08-12 13:08 | disposition home or self-care (01) ==
LOC: HO.HCS 12:25
PROVIDERS: PCP Internal Medicine; Visit Provider Internal Medicine
DX: I48.92 Unspecified atrial flutter (principal); I77.810 Thoracic aortic ectasia; R93.1 Abnormal findings on diagnostic imaging of heart and coronary circulation
CPT/HCPCS: 93010; 99214

== ENCOUNTER → 2024-08-12 12:25 | Outpatient (BNVA) | payer BC, SELFPAY | PROVIDERS: PCP Internal Medicine; Visit Provider Internal Medicine | DX: I48.92 Unspecified atrial flutter (principal); I77.810 Thoracic aortic ectasia; R93.1 Abnormal findings on diagnostic imaging of heart and coronary circulation; Z79.01 Long term (current) use of anticoagulants; Z79.899 Other long term (current) drug therapy | CPT/HCPCS: 93005 ==

== ENCOUNTER 2024-09-22 16:04 | Outpatient (REF) | payer BC, SELFPAY ==
--- NOTE | ~2024-09-22 | XR_ITS ---
EXAMINATION: XR CHEST CLINICAL INFORMATION: R05.9 - Cough, unspecified COMPARISON: Chest x-ray 01/14/2024 TECHNIQUE: 2 views of the chest were obtained. FINDINGS: Patchy opacity right lung base suggestive of infiltrate. Rest of the lungs are clear. The heart size and pulmonary vascularity is normal. No gross bony abnormality seen. XR/XR chest 2V IMPRESSION: Right lower lobe infiltrate. Electronically signed by: Jonathan Dai MD 09/22/2024 04:43 PM EDT
== END 2024-09-22 16:05 | disposition home or self-care (01) ==
LOC: HO.HMGCX 16:04
PROVIDERS: PCP Internal Medicine; Visit Provider Physician Assistant
DX: R05.9 Cough, unspecified (principal)
CPT/HCPCS: 71046

== ENCOUNTER 2024-09-22 16:04 | Outpatient (AMB) | payer BC, SELFPAY ==
[2024-09-22 16:08] VITALS: BP 130/70; PULSE 99; RESP 17; TEMP 37.7; O2SAT 91; BMI 20.5
--- NOTE | 2024-09-22 16:08 | MHC.OFFWIV ---
Intake Vital Signs 09/22/24 16:08 Height 5 ft 9 in Weight 139 lb BMI 20.5 BP 130/70 Blood Pressure Location Lt brachial Position Sitting Respiration 17 Pulse 99 Pulse Source Pulse Oximeter Temp 99.8 F Temp Source Oral Pulse Oximetry (%) 91 L Oxygen Delivery Method Room Air Intake Visit Reasons: EP sinus pressure, coughing mucus Intake Note: Pt is here today c/o sinus pressure and coughinu up mucus x1week Patient Tobacco Use Status: Former Tobacco user Allergies valproic acid Adverse Reaction (Intermediate, Verified 09/22/24 16:11) Hyponatremia HPI HPI Comments History of Present Illness Details History - The patient is a 69-year-old male presenting with congestive symptoms. - Congestive symptoms noted over a duration of 8 days, with initial congestion. - Oxygen saturation measured at 91%, down from 99% previous reading in December. - Reports of increased shortness of breath associated with exertion. - No history of asthma or COPD, and no regular use of inhalers noted. - Utilized decongestants without significant relief. - Denies fever, sinus pain, ear pain, headaches, or fatigue, with potential for pneumonia under investigation. Physical Exam General: Cooperative, healthy appearing, comfortable and no acute distress Orientation/consciousness: Patient oriented x3 Limitations: No limitations Head: Normal to inspection Ears: Hearing grossly normal bilaterally, external ears normal and TM's normal bilaterally Nose: Normal external nose present, Normal nares present and No nasal discharge present Face and sinus: Normal facial exam and Yes sinuses nontender Mouth: Normal oral and palatal mucosa present and moist mucous membranes Throat: Yes tonsils normal, Yes uvula midline. Posterior oropharynx erythema Eyes: Appearance normal, both eyes and all related structures Neck: Normal visual inspection Respiratory: Clear to auscultation bilaterally. Normal respiratory effort, able to speak in complete sentences, Actively coughing, no respiratory distress, not tachypneic, no tripod positioning and no use of accessory muscles Cardiovascular: regular rate and irregular rhythm Normal S1 and S2 Skin: No rashes or lesions noted Neuro: Patient oriented x3 Extremities: Normal to inspection and Yes no clubbing, cyanosis or edema [facility] Medical History (Updated 09/22/24 @ 16:24 by Leticia Espinoza PA-C) PVC (premature ventricular contraction) Surgical History History of esophagogastroduodenoscopy (EGD) Hx of colonoscopy History of shoulder surgery (~06/15/14) Family History Father No problems noted. Mother No problems noted. Social History Housing: House Alcohol intake: never Patient Tobacco Use Status: Former Tobacco user e-Cigarette/Vaping Use: Never Used Current occupational status: employed Cognitive needs: No Hearing needs: No Vision needs: Yes Review of Systems Const All systems reviewed & are unremarkable except as noted in HPI and below Physical Exam Vital Signs: Last Vital Signs Temp 99.8 F 09/22/24 16:08 Pulse 104 H 09/22/24 16:08 Resp 17 09/22/24 16:08 BP 130/70 09/22/24 16:08 Pulse Ox 90 L 09/22/24 16:08 Oxygen Delivery Method Room Air 09/22/24 16:08 BMI result Body Mass Index 20.5 Assessment & Plan Assessment & Plan (1) Lower respiratory infection (e.g., bronchitis, pneumonia, pneumonitis, pulmonitis): Code(s): J22 - Unspecified acute lower respiratory infection Plan: Patient is satting at 91%, otherwise vital signs are stable, he is in rate controlled AFib. Lung sounds were dim throughout. - Arrangement made for chest x-ray to further investigate potential pneumonia. - Recommendation made for using Allegro-D 24-hour to address congestive symptoms. - Awaiting x-ray results for further respiratory assessment and prescribe antibiotics, if necessary. Patient was informed and verbally consented to the use of an ambient scribe for clinic note documentation during this visit Orders: Orders XR chest 2V Today R05.9 - Cough, unspecified Coding Level of Care Code Est Pt Level 4 (67305) Diagnoses Lower respiratory infection (e.g., bronchitis, pneumonia, pneumonitis, pulmonitis) J22
== END 2024-09-22 16:31 | disposition home or self-care (01) ==
PROVIDERS: PCP Internal Medicine; Visit Provider Physician Assistant
DX: J22 Unspecified acute lower respiratory infection (principal)

== ENCOUNTER → 2024-09-22 16:27 | Outpatient (BNV) | payer BC, SELFPAY | PROVIDERS: PCP Internal Medicine; Visit Provider Radiology Diagnostic Radiology | DX: R91.8 Other nonspecific abnormal finding of lung field (principal) | CPT/HCPCS: 71046 ==

== ENCOUNTER → 2024-11-23 08:11 | Outpatient (REF) | payer BC, SELFPAY ==
--- NOTE | ~2024-11-23 | NM_ITS ---
Lexiscan Myocardial perfusion study Indication: Coronary artery disease Technique: The patient was brought in for a Lexiscan perfusion study on 11/23/2024 and was injected 0.4 mg of Lexiscan intravenously. Within a minute of this injection 25 mCi of sestamibi was given intravenously. Images were obtained using the SPECT gamma camera interlaced with the gating device. Images were obtained in supine position. Resting perfusion study was performed on 11/24/2024. Patient was administered 25 mCi of sestamibi intravenously at rest. Images were then obtained in supine position. Total DLP 65 mGy-cm. Images were processed with the software and compared side to side in short axis, horizontal long axis and vertical long axis views. Findings: Raw aquisition reviewed. Arms by the patient's side The stress perfusion study showed no significant perfusion abnormality. Both uncorrected as well as CT attenuation corrected images were reviewed. The gated study shows normal LV systolic function with calculated LVEF of 58%. LV cavity is normal in size. The gated study shows normal wall thickening and contraction of segments. Resting study shows no significant perfusion abnormality. Gating at rest reveals normal wall motion with ejection fraction at > 70%. The findings are consistent with no clear reversible or fixed perfusion abnormality. NM/NM cardiolite stress test Impression: 1. Myocardial perfusion imaging study shows probably normal myocardial perfusion. 2. Gated LVEF is 58% during stress and > 70% during rest. 3. Transient ischemic dilatation not present. EKG component of the test reported separately. Electronically signed by: Delroy Goyal MD 11/26/2024 12:46 PM EDT
--- NOTE | 2024-11-23 08:13 | CA_ITS ---
Acquisition Time: 2024-11-23 08:59:04 Total Exercise Time: 00:05:04 Test Indications: ABN ECHO Medications: SEE H&P Protocol: DANIEL Max HR: 112 BPM 74% of Pred: 151 BPM Max BP: 150/70 mmHG Max Work Load: 6.5 METS Exercise stress test with exercise 5mins 4 secs of Daniel Protocol at reduced speed at 2.3mph, achieving 72% MPHR, with frequent PACs and PVCs, without any EKG changes or CP. Test swicthed to Lexiscan. Pharmacological stress test with Lexiscan while pt moved his legs, with reports of SOB and dizziness, with frequent PACs and PVCs, with normotensive response to injection. Nondiagnostic EKG for ischemia. In recovery, pt treated with IVP Aminiophylline 75 mg to reverse Lexiscan after which pt feeling back to baseline. Nuclear images pending. Test reviewed with Dr. Goyal. Referred By: Delroy Goyal Electronically Signed By: Connor Wilburn
--- OUTSIDE RECORDS SUMMARY | 2024-11-23 08:16 | XMS_ITS | Patient Health Record ---
Author Organization [facility] Address [address] [place] [address] Care Team Providers Care Claim Trainee Name Role Phone Junior Joshua M.D. Primary Care Provider Maureen Atul Simons Jr Unavailable [phone] Reason For Referral No Information Medications Medication SIG (Take, Route, Fr equency, Duration) Notes Start Date End Date Status MoviPrep 100 GM as directed before c olonoscopy Orally for 1 dose 09/30/2012 04/21/2024 Active Dilantin Active Problems Problem Type SNOMED Code ICD Code Onset Dates Problem Status W/U Status Risk Notes Problem Colon cancer screening (289030350) Colon cancer screening (V76.51) Active confirmed Problem Thrombocytopenia (303726402) Thrombocytopenia (287.5) Active confirmed Plan Of Treatment Future Test Test Name Order Date COLONOSCOPY 09/30/2012 Insurance Providers Payer Name Payer Address Payer Phone Subscriber Number Group Number Insured Name Patient Relationship to Insured Coverage Start Date Coverage End Date [facility] PROFESSIONAL CLAIMS [address] [place] [address] [id number] Self - patient is the insured Medical (General) History Medical History History ICD Code Denies [place],DM,CVA,Lung disease,renal dise ase Melanoma Surgical History Surgery Date(Month/Year) Removal of mole
== END ==
LOC: HO.CARD 08:11
PROVIDERS: PCP Internal Medicine; Visit Provider Internal Medicine
DX: R07.2 Precordial pain (principal)
CPT/HCPCS: 78452; 93017; A9500; J0280; J2785

== ENCOUNTER → 2024-11-23 08:13 | Outpatient (BNV) | payer BC, SELFPAY | PROVIDERS: PCP Internal Medicine | DX: I49.1 Atrial premature depolarization (principal); I49.3 Ventricular premature depolarization; R06.02 Shortness of breath | CPT/HCPCS: 78452; 93016; 93018 ==

== ENCOUNTER 2025-02-02 12:24 | Outpatient (AMB) | payer BC, SELFPAY ==
[2025-02-02 12:45] VITALS: BP 126/80; PULSE 60; TEMP 36.6; O2SAT 95; BMI 21.4
--- NOTE | 2025-02-02 12:45 | A.OFFPC_ITS ---
Vital Signs 02/02/25 12:45 Height 5 ft 9 in Weight 145 lb BMI 21.4 BP 126/80 Blood Pressure Location Lt brachial Position Sitting Pulse 60 Pulse Source Pulse Oximeter Temp 97.8 F Temp Source Oral Pulse Oximetry (%) 95 Intake Visit Reasons: PE Individual Pension Adviser Required: No Accompanied by: Self / Same As Patient Allergies valproic acid Adverse Reaction (Intermediate, Verified 02/02/25 13:00) Hyponatremia Medication List - Last Reconciled 02/02/25 by Mily Begum MD albuterol sulfate 90 mcg/actuation 2 puffs inhalation Q6H PRN atorvastatin 20 mg PO DAILY diltiazem HCl ER (DILT-XR) 180 mg PO DAILY inhalational spacing device (BreatheRite MDI Spacer) As directed levetiracetam 750 mg PO DAILY rivaroxaban (Xarelto) 20 mg PO DAILY Tobacco use date assessed: 02/02/25 Fall risk assessment: No Falls in past year Last assessed Fall Risk: 02/02/25 Dental Screening Dental Screen Date: 02/02/25 Did you have a dental visit in the last 12 months?: Yes Did you have a dental problem in the last 6 months where you did not have access to dental care?: No Was dental information given to patient?: Patient has dentist HPI PE HPI Details Patient presents for physical PFSH Medical History (Updated 02/02/25 @ 13:34 by Mily Begum MD) Paroxysmal atrial flutter Ascending aorta dilatation MCI (mild cognitive impairment) Complex partial seizures CVA (cerebral vascular accident) Surgical History (Updated 02/02/25 @ 13:20 by Mily Begum MD) History of esophagogastroduodenoscopy (EGD) Hx of colonoscopy History of shoulder surgery (~06/15/14) Family History Father No problems noted. Mother No problems noted. Social History Housing: House Alcohol intake: never Patient Tobacco Use Status: Former Tobacco user e-Cigarette/Vaping Use: Never Used Current occupational status: employed Cognitive needs: No Hearing needs: No Vision needs: Yes Questionnaire PHQ-9 Over the last 2 weeks, how often have you been bothered by any of the following problems? 1. Little interest or pleasure in doing things: not at all 2. Feeling down, depressed, or hopeless: not at all 3. Trouble falling or staying asleep, or sleeping too much: not at all 4. Feeling tired or having little energy: not at all 5. Poor appetite or overeating: not at all 6. Feeling bad about yourself - or that you are a failure or have let yourself or your family down: not at all 7. Trouble concentrating on things, such as reading the newspaper or watching television: not at all 8. Moving or speaking so slowly that other people could have noticed. Or the opposite - being so fidgety or restless that you have been moving around a lot more than usual: not at all 9. Thoughts that you would be better off or of hurting yourself in some way: not at all Total score: 0 Depression Screening Interpretation: Negative Depression Screening Done: Yes 02932 - PHQ-9 Billing: Yes Source: Developed by Drs. Abe Garza, Layne Dee, Sly Alvarado and colleagues, with an educational tianna from [employer]. Thrive Questionnaire Date Thrive assessed: 02/02/25 I am a: Patient What is your living situation today?: I have a steady place to live Within the past 12 months, did the food you bought not last and you didn't have the money to get more?: Never true Within the past 12 months, did you worry whether your food would run out before you got money to buy more?: Never true Do you have trouble paying for medicines?: No Do you have trouble getting transportation to medical appointments?: No Do you have trouble paying your heating and electricity bill?: No Do you have trouble taking care of your child, family member or friend?: I choose not to answer this question Do you have trouble with day-to-day activities such as bathing, preparing meals, shopping, managing finances, etc.?: No Are you currently unemployed and looking for a job?: No Are you interested in more education?: No Please select the resources that you would like help with: None Currently or been in a relationship where the following occur: No concerns reported THRIVE Score: 0 AUDIT C Alcohol Use Questionnaire (AUDIT-C) 1. How often do you have a drink containing alcohol?: Never 3. How often do you have six or more drinks on one occasion?: Never Total Score: 0 Score Reviewed/Action Taken: Yes VIPIN-7 AMB Questionnaire VIPIN-7 Date VIPIN - 7 assessed: 02/02/25 Feeling nervous, anxious, or on edge: 0 = Not at all Not being able to stop or control worryin = Not at all Worrying too much about different things: 0 = Not at all Trouble relaxin = Not at all Being so restless that it is hard to sit still: 0 = Not at all Becoming easily annoyed or irritable: 0 = Not at all Feeling afraid as if something awful might happen: 0 = Not at all Total VIPIN-7 score (0-4 normal; 5-9 mild; 10-14 moderate; 15-21 severe): 0 Source: Developed by Drs. Abe Garza, Lanye Dee, Sly Alvarado and colleagues, with an educational tianna from [employer]. VIPIN-7 Assessment Billing VIPIN-7 Assessment Tool: VIPIN-7 Assessment 28009 Review of Systems Const All systems reviewed & are unremarkable except as noted in HPI and below Reports no additional complaints Eyes Reports no additional complaints ENT Reports no additional complaints Card Reports no additional complaints Resp Reports no additional complaints GI Reports no additional complaints Reports no additional complaints Physical exam (Primary Care) Vital Signs: Last Vital Signs Temp 97.8 F 02/02/25 12:45 Pulse 60 02/02/25 12:45 BP 126/80 02/02/25 12:45 Pulse Ox 95 02/02/25 12:45 BMI result Body Mass Index 21.4 Tobacco/Smoking Status: Tobacco use Status Tobacco use date assessed 02/02/25 02/02/25 12:46 Patient Tobacco Use Status Former Tobacco user 02/02/25 12:46 e-Cigarette/Vaping Use Never Used 02/02/25 12:46 PHQ-9: PHQ-9 Score PHQ-9: Total score 0 02/02/25 12:46 Depression Screening Interpretation: Negative Thrive Assessment: Date of Thrive Assessment Date Thrive assessed 02/02/25 02/02/25 12:46 Currently or been in a relationship where the following occur: No concerns reported Const General: no acute distress HENMT Head: Yes normal to inspection Face and sinus: Yes normal facial exam Throat: Yes posterior oropharynx normal Neck Neck: Yes no lymphadenopathy and Yes supple Resp Effort & Inspection: normal respiratory effort Auscultation: clear to auscultation bilaterally Cardio Rhythm: regular rhythm Heart sounds: S1 normal heart sound present and S2 normal heart sound present GI Inspection: Yes normal to inspection Palpation (GI): Soft to palpation Percussion: Yes normal to percussion Auscultation: normal bowel sounds Coding Level of Care Code Est Pt Prev Care >65y(39492) Diagnoses CVA (cerebral vascular accident) I63.9 Seizure R56.9 Ascending aorta dilatation I77.810 Annual physical exam Z00.00 Paroxysmal atrial flutter I48.92 Complex partial seizures G40.209 Additional Codes VIPIN-7 Assessment Billing - VIPIN-7 Assessment Tool: VIPIN-7 Assessment 04818 ([id number]) PHQ-9 - 35584 - PHQ-9 Billing: Yes ([id number]) Assessment & Plan Assessment & Plan (1) CVA (cerebral vascular accident): Comment: MRI brain R parietal lacular infarcts Code(s): I63.9 - Cerebral infarction, unspecified Category: Medical Plan: On Xarelto (2) Seizure: Comment: no seizure activity in 10 years, f/u with neurology Code(s): R56.9 - Unspecified convulsions Category: Medical Plan: Continue Keppra follow-up with Neurology (3) Ascending aorta dilatation: Comment: Echo 07/11, 08/2024 f/u [facility] cardiology Code(s): I77.810 - Thoracic aortic ectasia Category: Medical Plan: Established with Cardiology (4) Annual physical exam: Code(s): Z00.00 - Encounter for general adult medical examination without abnormal findings Category: Medical Plan: Well-balanced diet regular physical activity discussed with the patient (5) Paroxysmal atrial flutter: Comment: On diltiazem and Xarelto, f/u [facility] CARDIOLOGY Code(s): I48.92 - Unspecified atrial flutter Category: Medical Plan: Continue diltiazem and Xarelto (6) Complex partial seizures: Comment: Controlled on Keppra established with Neurology Code(s): G40.209 - Localization-related (focal) (partial) symptomatic epilepsy and epileptic syndromes with complex partial seizures, not intractable, without status epilepticus Category: Medical Plan: Continue Kepp Orders: Orders Comprehensive Howard. Panel Fast Today I77.810 - Thoracic aortic ectasia, Z00.00 - Encounter for general adult medical examination without abnormal findings Complete Blood Count Auto Diff Today I77.810 - Thoracic aortic ectasia, Z00.00 - Encounter for general adult medical examination without abnormal findings PSA,Total (Free>4and<10) Today I77.810 - Thoracic aortic ectasia, Z00.00 - Encounter for general adult medical examination without abnormal findings Lipid Panel Today I77.810 - Thoracic aortic ectasia, Z00.00 - Encounter for general adult medical examination without abnormal findings UA w Microscopic Today I77.810 - Thoracic aortic ectasia, Z00.00 - Encounter for general adult medical examination without abnormal findings
--- OUTSIDE RECORDS SUMMARY | 2025-02-02 15:42 | XMS_ITS | Patient Health Record ---
Author Organization [facility] Address [address] [place] [address] Care Team Providers Care Crewman Armoured Personnel Carrier [id number] Name Role Phone Junior Joshua M.D. Primary Care Provider Maureen Atul Simons Jr Unavailable Reason For Referral No Information Medications Medication SIG (Take, Route, Fr equency, Duration) Notes Start Date End Date Status MoviPrep 100 GM as directed before c olonoscopy Orally; Duration: 1 dose 09/30/2012 04/21/2024 Active Dilantin Active Problems Problem Type SNOMED Code ICD Code Onset Dates Problem Status W/U Status Risk Notes Problem Colon cancer screening (211392583) Colon cancer screening (V76.51) Active confirmed Problem Thrombocytopenia (856356225) Thrombocytopenia (287.5) Active confirmed Plan Of Treatment Future Test Test Name Order Date COLONOSCOPY 09/30/2012 Insurance Providers Payer Name Payer Address Payer Phone Subscriber Number Group Number Insured Name Patient Relationship to Insured Coverage Start Date Coverage End Date [facility] PROFESSIONAL CLAIMS [address] [place] [address] [id number] Self - patient is the insured Medical (General) History Medical History History ICD Code Denies [place],DM,CVA,Lung disease,renal dise ase Melanoma Surgical History Surgery Date(Month/Year) Removal of mole
== END 2025-02-02 13:38 | disposition home or self-care (01) ==
LOC: HO.HMCC 12:25
PROVIDERS: PCP Internal Medicine; Visit Provider Internal Medicine
DX: Z00.00 Encounter for general adult medical examination without abnormal findings (principal); I63.9 Cerebral infarction, unspecified; I48.92 Unspecified atrial flutter; G40.209 Localization-related (focal) (partial) symptomatic epilepsy and epileptic syndromes with complex partial seizures, not intractable, without status epilepticus; R56.9 Unspecified convulsions; I77.810 Thoracic aortic ectasia

== ENCOUNTER → 2025-02-02 12:24 | Outpatient (BNVA) | payer BC, SELFPAY | PROVIDERS: PCP Internal Medicine; Visit Provider Internal Medicine | DX: Z00.00 Encounter for general adult medical examination without abnormal findings (principal); Z86.73 Personal history of transient ischemic attack (TIA), and cerebral infarction without residual deficits; I77.810 Thoracic aortic ectasia; I48.92 Unspecified atrial flutter; G40.209 Localization-related (focal) (partial) symptomatic epilepsy and epileptic syndromes with complex partial seizures, not intractable, without status epilepticus | CPT/HCPCS: 96127 ==

== ENCOUNTER 2025-02-05 09:42 | Outpatient (REF) | payer BC, SELFPAY ==
--- OUTSIDE RECORDS SUMMARY | 2025-02-05 09:45 | XMS_ITS | Patient Health Record ---
Author Organization [facility] Address [address] [place] [address] Care Team Providers Care Color Control Supervisor Name Role Phone Junior Joshua M.D. Primary Care Provider Maureen Atul Simons Jr Unavailable [phone] Reason For Referral No Information Medications Medication SIG (Take, Route, Fr equency, Duration) Notes Start Date End Date Status MoviPrep 100 GM as directed before c olonoscopy Orally; Duration: 1 dose 09/30/2012 04/21/2024 Active Dilantin Active Problems Problem Type SNOMED Code ICD Code Onset Dates Problem Status W/U Status Risk Notes Problem Colon cancer screening (313647453) Colon cancer screening (V76.51) Active confirmed Problem Thrombocytopenia (947303232) Thrombocytopenia (287.5) Active confirmed Plan Of Treatment Future Test Test Name Order Date COLONOSCOPY 09/30/2012 Insurance Providers Payer Name Payer Address Payer Phone Subscriber Number Group Number Insured Name Patient Relationship to Insured Coverage Start Date Coverage End Date [facility] PROFESSIONAL CLAIMS [address] [place] [address] [id number] Self - patient is the insured Medical (General) History Medical History History ICD Code Denies [place],DM,CVA,Lung disease,renal dise ase Melanoma Surgical History Surgery Date(Month/Year) Removal of mole
[2025-02-05 10:10] LABS: MANUAL DIFF FLAG NO
[2025-02-05 10:58] LABS: Hematocrit 44.5 % (42.0-52.0); Hemoglobin 14.9 g/dl (14.0-18.0); Imm Gran Abs Auto 0.02 X10*3/uL (0.00-0.03); Imm Gran Pct Auto 0.4 % (0.0-0.4); Lymphocytes Absolute Auto 1.2 X10*3/uL (1.2-4.9); Mean Corpuscular HGB Conc 33.5 g/dl (31.0-36.0); Mean Corpuscular Hemoglobin 30.8 pg (27.0-33.0); Mean Corpuscular Volume 92.1 fL (80.0-98.0); NRBC Abs Auto 0.000 X10*3/uL (0.0-0.012); NRBC Pct Auto 0.0 /100WBC (0.0-0.2); Platelet Count 106 X10*3/uL (160-400); Red Blood Count 4.83 X10*6/uL (4.60-5.80); White Blood Count 5.7 X10*3/uL (4.8-10.8)
[2025-02-05 11:11] LABS: Appearance Urine Clear; Glucose Urine UA Negative (Negative); PH 6.5 (5.0-9.0); Specific Gravity - Urine 1.010 (1.005-1.025)
[2025-02-05 11:37] LABS: Alanine Aminotransferase 24 U/L (0-40); Albumin Level 4.1 g/dL (3.5-5.0); Alkaline Phosphatase 123 U/L (39-117); Anion Gap 13 (12-20); Aspartate Amino Transferase 27 U/L (5-37); Blood Urea Nitrogen 14 mg/dL (9-16); Calcium 9.1 mg/dL (8.4-10.2); Carbon Dioxide 28 mmol/L (22-29); Chloride 103 mmol/L (96-108); Cholesterol 130 mg/dL (<200); Estimated Glomerular Filt Rate > 60; HDL Cholesterol 64 mg/dL (>40); Potassium 4.1 mmol/L (3.3-5.1); Sodium 140 mmol/L (135-145); Total Protein 6.6 g/dL (6.5-8.0); Triglycerides 28 mg/dL (<150)
[2025-02-05 11:51] LABS: PSA,Total (Free>4and<10) 0.62 ng/mL (0.00-4.00)
== END 2025-02-05 09:43 | disposition home or self-care (01) ==
LOC: HO.LAB 09:42
PROVIDERS: PCP Internal Medicine; Visit Provider Internal Medicine
DX: Z00.00 Encounter for general adult medical examination without abnormal findings (principal); I77.810 Thoracic aortic ectasia; Z12.5 Encounter for screening for malignant neoplasm of prostate; Z13.6 Encounter for screening for cardiovascular disorders
CPT/HCPCS: 36415; 80053; 80061; 81001; 84153; 85025